=== PATIENT | male | born 1955 | race Caucasian/White ===

== ENCOUNTER 2022-01-18 14:04 | Outpatient (RCR) | payer MEDICARE, BC, SELFPAY ==
--- NOTE | 2022-01-19 14:38 | URNOTE ---
Request received for prior authorization of Granisetron [id number], Gemzar [id number] and Abraxane [id number]. Patient carries Medicare as primary insurance. Per CMS.gov LCD 44028 no prior authorization is required for Gemzar. Per CMs.gov no prior authorization is required for Abraxane and Granisetron. Services are based on medical necessity and follow Medicare guidelines.
== END 2022-01-24 23:59 | disposition home or self-care (01) ==
LOC: CCIC 14:04
PROVIDERS: PCP Family Medicine; Visit Provider Internal Medicine Medical Oncology
DX: C25.9 Malignant neoplasm of pancreas, unspecified (principal); C78.7 Secondary malignant neoplasm of liver and intrahepatic bile duct; R91.8 Other nonspecific abnormal finding of lung field
CPT/HCPCS: 99202; 99205

== ENCOUNTER 2022-01-25 07:42 | Day surgery (SDC) | payer MEDICARE, BC, SELFPAY ==
--- NOTE | 2022-01-25 | CRLHL7_ITS ---
For Patients: As a result of the Century Cures Act, medical imaging exams and procedure reports are released immediately into your electronic medical record. You may view this report before your referring provider. If you have questions, please contact your health care provider. Indication: Intraop port-a-cath placement Technique: Four fluoroscopic spot images of the chest. Fluoroscopic time 101.5 seconds. IMPRESSION: Fluoroscopic guidance for Port-A-Cath placement. Dictated by Luisito Garcia MD @ 01/25/2022 8:55:30 AM (Electronically Signed)
[2022-01-25 06:30] VITALS: BP 138/87; PULSE 77; RESP 16; TEMP 36.7; O2SAT 97
--- NOTE | 2022-01-25 07:32 | CRLHL7_ITS ---
For Patients: As a result of the Century Cures Act, medical imaging exams and procedure reports are released immediately into your electronic medical record. You may view this report before your referring provider. If you have questions, please contact your health care provider. INDICATION: POST PORT PLACEMENT TECHNIQUE: Chest 1 view COMPARISON: 07/01/2021 FINDINGS: Left-sided Port-A-Cath is present with the tip in the lower SVC. No left-sided pneumothorax. No pleural effusion. Improved aeration within the right upper lobe since the prior study. Artifactual skin fold overlies the right lateral hemithorax. Mediastinum similar. IMPRESSION: Left Port-A-Cath present. No left-sided pneumothorax. Dictated by Luisito Garcia MD @ 01/25/2022 8:54:21 AM (Electronically Signed)
--- NOTE | 2022-01-25 08:33 | PM.GSCN ---
History of Present Illness Consult details Consult date: 01/25/22 Narrative: 66-year-old male was recently diagnosed with metastatic pancreatic cancer. Patient was seen by Oncology and chemotherapy was recommended. Patient wished to proceed with chemotherapy and today he presents for a Port-A-Cath placement. 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 He had multiple surgeries on that side approximately 10 years ago. He had neoadjuvant radiation followed by resection. He also had surgery combined with postoperative radiation for 1 of his resections. Patient has a history of tracheostomy. He also had a carotid angioplasty ?through his throat? due to profuse bleeding. This seemed to be a complication of his surgery. Patient has been losing weight. He is not able to eat or drink. He has nausea and vomiting. Review of Systems Narrative: General: no fevers HENT: no problems swallowing but unable to eat CV: no shortness of breath Resp: no cough GI: Patient does have abdominal pain and complaints of nausea and vomiting. 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 He is retired. Meds Home Medications and Allergies Home Medications Medication Instructions Recorded Confirmed Type ondansetron 4 mg disintegrating 4 mg PO Q8H 01/14/22 01/14/22 History tablet lipase 3,000-protease 1 cap PO TID 01/18/22 01/18/22 History 9,500-amylase 15,000 unit capsule, delayed rel (Creon) Allergies Allergy/AdvReac Type Severity Reaction Status Date / Time aprepitant Allergy Severe Anaphylaxis Verified 01/14/22 13:39 tetanus and diphtheria Allergy Severe Verified 01/14/22 13:39 toxoids Exam Narrative: Exam Narrative: General appearance: Alert, cooperative, and in no distress Neck: There was a well-healed post tracheostomy scar in the midline. Pulmonary: Chest symmetric, lungs clear bilaterally Cardiovascular Heart: Regular rate and rhythm, S1, S2, no murmurs/rubs/gallops Gastrointestinal Abdominal: soft, not distended, there is a resolving ecchymosis in the right upper quadrant post patient's recent biopsy Skin: No rashes or lesions. Psychiatric: Alert, cooperative, normal affect. Results Labs Labs: All other labs normal. Assessment and Plan Assessment and plan (1) Pancreatic mass: Status: Acute (2) Carcinoma of pancreas metastatic to liver: Status: Acute (3) Common bile duct obstruction: Status: Acute Plan 66-year-old male with metastatic pancreatic cancer presents for Port-A-Cath placement. I discussed with the patient and his the procedure in detail. Patient does not have any contraindications to the procedure today. I did discuss with the patient that his Port-A-Cath placement might be difficult on the right side given number of surgeries he had on his oropharynx. The risks of the procedure including infection, bleeding, pneumothorax, and inability to place the Port-A-Cath were all discussed with the patient, and he agreed to proceed.
--- NOTE | 2022-01-25 08:34 | W.ANESCHARGE ---
Anesthesia Charges Start Date/Time Anesthesia Start Date: 01/25/22 Anesthesia Start Time: 07:30 Stop Date/Time Anesthesia Stop Date: 01/25/22 Anesthesia Stop Time: 08:35 Summary Emergency: No
[2022-01-25 08:35] VITALS: BP 104/63; PULSE 66; RESP 14; TEMP 36.4; O2SAT 99
--- NOTE | 2022-01-25 08:47 | P.GSOP_ITS ---
Operative Note Date of procedure: 01/25/22 Type of Procedure: 1. Left internal jugular Port-A-Cath placement with ultrasound and fluoroscopy guidance. Procedure Description: After discussing the risks and benefits of the procedure, the patient signed informed consent.? The operative site was marked and the patient was brought to the operating room and placed on the operating table in supine position.? Care was taken to pad the patient's pressure points.?? The patient was then sedated by anesthesia.?? The operative site was then prepped and draped in the usual sterile fashion.? A time-out was then performed. Ultrasound was brought on to the field and the left internal jugular vein was assessed. This was found to be large and easily compressible. The base of the neck directly overlying the internal jugular vein was then anesthetized with 1% lidocaine and 0.25% Marcaine mixture, and an introducer needle was inserted into the internal jugular vein using ultrasound guidance. Entry into the vein was confirmed by the presence of dark, nonpulsatile blood. A guide wire was advanced through the needle. The introducer needle was removed, leaving the wire in place. Fluoroscopy was brought onto the field and used to confirm the passage of the wire. The wire initially was difficult to pass past the midline. With manipulation of the patient position in reverse Trendelenburg and the right side down, I was able to advance the wire under fluoroscopy guidance. The wire was passed on the right side through the superior vena cava and into inferior vena cava. Lidocaine was then used to infiltrate the port skin site, along with the proposed tunneling tract. A 3 cm incision was made at the site of the port pocket and subcutaneous tissue was dissected down using electrocautery. Subcutaneous pocket was created with blunt dissection and e lectrocautery. The catheter was advanced through the subcutaneous tissue using a tunneling trocar, exiting the incision at the base of the neck. The trocar was then disconnected. Fluoroscopy was again brought on to the field and the internal jugular vein and adjacent subcutaneous tissue was dilated with a pre-split introducer sheath in place. The wire was removed and the catheter was inserted i nto the introducer sheath. As the catheter was advanced, the sheath was split and divided, removing the sheath as the catheter was advanced into place. Fluoroscopy was again brought on to the field and the catheter position was examined. The entire course of the catheter was then viewed, and catheter was pulled back under direct visualization to ensure that the tip is in the SVC. The port was connected to the catheter tip and placed into previously created pocket. Prolene was used to place anchoring port sutures and the port was then secured in the pocket. The flow through the catheter was checked with a syringe, and found to be excellent. The incision at the base of the neck was then closed with a single interrupted 4-0 monocryl stitch and dressed with a Steri-Strip and a sterile ba ndage. Subdermal layer was re-approximated with interrupted 3-0 vicryl stitches and skin over the port was closed with 4-0 monocryl using subcuticular stitch. Lyon needle was inserted through the skin into the port and the port was flushed with heparinized saline. This was then left in place for upcoming chemotherapy treatment tomorrow. The incision was then covered with Steri strips, sterile 2x2 and Tegaderm was applied over the incision. The patient was then roused and brought to same day surgery in satisfactory condition. Sponge and needle counts were correct at the end of the procedure. Post procedure CXR was ordered to be done in same day surgery. ? Sterile dressings were then applied. ? The patient was then woken and transported to the recovery area in stable condition. ? The patient tolerated the procedure well. Findings: The left internal jugular vein was easily compressible. There was difficulty initially passing the wire under fluoroscopy guidance. Patient's position was rotated in Trendelenburg and right side down. Once the position was returned to flat in Trendelenburg, I was able to advance the wire under fluoroscopy guidance into the inferior vena cava. Anesthesia: MAC and local Surgeon: Estelita Cantrell MD Condition: stable Disposition: same day
--- NOTE | 2022-01-25 09:54 | W.ANESCHARGE ---
Anesthesia Charges Start Date/Time Anesthesia Start Date: 01/25/22 Anesthesia Start Time: 07:30 Stop Date/Time Anesthesia Stop Date: 01/25/22 Anesthesia Stop Time: 08:35 Summary Emergency: No
== END 2022-01-25 10:15 | disposition home or self-care (01) ==
LOC: OR 07:43
PROVIDERS: PCP Family Medicine; Visit Provider Surgery
PROC: (CPT 36561; principal; 2022-01-25 07:30)
DX: Z45.2 Encounter for adjustment and management of vascular access device (principal); C25.9 Malignant neoplasm of pancreas, unspecified; C78.7 Secondary malignant neoplasm of liver and intrahepatic bile duct; K83.1 Obstruction of bile duct; Z85.818 Personal history of malignant neoplasm of other sites of lip, oral cavity, and pharynx
CPT/HCPCS: 36561; 00532; 71045; C1788

== ENCOUNTER 2022-02-12 12:37 | Outpatient (REF) | payer MEDICARE, BC, SELFPAY ==
[2022-02-12 15:07] LABS: SARS PCR* Negative SARS-CoV-2 (Negative)
== END 2022-02-12 12:38 | disposition home or self-care (01) ==
LOC: NPINS 12:37
PROVIDERS: PCP Family Medicine; Visit Provider Internal Medicine Medical Oncology
DX: Z20.822 Contact with and (suspected) exposure to COVID-19 (principal)
CPT/HCPCS: 87635

== ENCOUNTER 2022-05-10 09:31 | Outpatient (CLI) | payer MEDICARE, BC, SELFPAY ==
--- NOTE | 2022-05-10 10:00 | CRLHL7_ITS ---
For Patients: As a result of the 21st Century Cures Act, medical imaging exams and procedure reports are released immediately into your electronic medical record. You may view this report before your referring provider. If you have questions, please contact your health care provider. Indication: CARCINOMA OF THE PANCREAS AND LIVER Technique: Postcontrast CT chest, abdomen and pelvis. 64 cc Isovue 370 intravenous contrast. Please note that all CT scans at this facility use dose modulation, iterative reconstruction, and/or weight-based dosing when appropriate to reduce radiation dose to as low as reasonably achievable. Comparison: MRI 12/14/21, CT 12/03/2021 Findings: In the chest, there is a left-sided Port-A-Cath present. No mediastinal, hilar or axillary adenopathy. The patient is cachectic. Noncalcified nodule within the left upper lobe measuring 4 millimeters, . 2 millimeter nodule right lower lobe, /95. Lobular nodule right lower lobe measuring 4.4 millimeters, 96. Additional nodule adjacent to the right hemidiaphragm right lower lobe measuring 4 millimeters, /104. No infiltrate, edema, effusion or pneumothorax. No fracture. Emphysematous changes. In the abdomen, increased size and number of innumerable intrahepatic hypodense masses compared to the prior MRI. The largest lesion measures approximately 2.2 cm. Mild adjacent ascites in the right upper quadrant. Interval placement of internal biliary stent with expected pneumobilia. Ill-defined hypodense pancreatic head mass appears more conspicuous measuring up to 3.3 cm. Adjacent adenopathy which has also progressed with innumerable lymph nodes measuring up to 2 cm. Distended pancreatic duct again noted. Spleen is not enlarged. No hydronephrosis. Adrenal glands normal. No abdominal aortic aneurysm. No bowel obstruction. In the pelvis, increased stool in the colon compatible with constipation. Pelvic fluid noted. No abscess. No free air. No bowel obstruction. Bladder normal. A few scattered bone islands within the pelvis stones. Incidental density within the posterior spinal canal L4-5. Impression: Increased number and size of innumerable hepatic metastatic lesions. Interval development of intra-abdominal and intrapelvic ascites. Increased size of pancreatic mass. Interval placement of internal biliary stent. Increased adjacent retroperitoneal adenopathy. Scattered bilateral pulmonary nodules measuring up to 4.4 millimeters. Please note that all CT scans at this facility use dose modulation, iterative reconstruction, and/or weight-based dosing when appropriate to reduce radiation dose to as low as reasonably achievable. Dictated by Luisito Garcia MD @ 05/10/2022 1:00:49 PM (Electronically Signed)
== END 2022-05-10 09:32 | disposition home or self-care (01) ==
LOC: CT 09:33
PROVIDERS: Visit Provider Internal Medicine Medical Oncology
DX: C78.7 Secondary malignant neoplasm of liver and intrahepatic bile duct (principal); C25.9 Malignant neoplasm of pancreas, unspecified; R91.8 Other nonspecific abnormal finding of lung field
CPT/HCPCS: 36415; 36591; 71260; 74177; 80053; 85025; 99212; 99214; J1642; Q9967

== ENCOUNTER 2022-07-21 17:47 | Inpatient (IN) | payer MEDICARE, BC, SELFPAY ==
[2022-07-21] VITALS (10 sets, daily range): BP systolic 85–115; BP diastolic 61–79; PULSE 63–70; RESP 14–20; TEMP 35.1–36; O2SAT 88–97; BMI 17.9
--- NOTE | 2022-07-21 17:59 | ED.GENADULT ---
HPI - General Adult General Chief complaint: Weakness Stated complaint: Fall Time Seen by Provider: 07/21/22 17:58 History of Present Illness HPI narrative: This 66-year-old male comes in by ambulance where ambulance personnel it noted a blood glucose of 38. He did receive treatment for this and has responded nicely. He is not on any glucose lowering medications. He does have pancreatic cancer and oral cancer. He is very difficult to understand. He does report that he was [place] [employer] and states that he fell without injury. He got some help to get up and he drove home. People at home found him in the car not responding well. He denies having any injury. He is cachectic and currently receiving chemotherapy for his cancers. Related Data Home Medications Medication Instructions Recorded Confirmed loperamide 2 mg capsule 2 mg PO Q6H PRN 02/25/22 07/19/22 calcium carbonate 200 mg calcium 200 mg PO QID PRN 03/29/22 07/19/22 (500 mg) chewable tablet (Tums) psyllium husk 3.4 gram/5.4 gram 1 tbsp PO QDAY 06/24/22 07/19/22 oral powder (Metamucil) Previous Rx's Medication Instructions Recorded lorazepam 0.5 mg tablet 0.5 mg PO BID PRN nausea and 01/26/22 vomiting #30 tabs ondansetron 4 mg disintegrating 4 mg PO Q8H PRN nausea and 01/26/22 tablet vomiting #30 tabs prochlorperazine maleate 10 mg 10 mg PO TID PRN nausea and 01/26/22 tablet vomiting #30 tabs Allergies Allergy/AdvReac Type Severity Reaction Status Date / Time aprepitant Allergy Severe Anaphylaxis Verified 07/21/22 18:55 tetanus and diphtheria Allergy Severe Verified 07/21/22 18:55 toxoids Review of Systems Status of ROS: Reports: 10 or more systems reviewed and unremarkable except as noted in History and below Narrative: Constitutional: No fevers. Eyes: No discharge. No vision changes. HENT: Oral cancer with associated dry mouth. Cardiovascular: No chest pain, no palpitations. Respiratory: No shortness of breath, no wheezes, no cough. Gastrointestinal: No abdominal pain, no vomiting, no diarrhea. Genitourinary: No dysuria, no hematuria. Musculoskeletal: Normal range of motion. Skin: No rashes, no pruritis. Neurological: No dizziness, sensory change, speech change. Endo/Heme/Allergies: No bruising or bleeding. No polydipsia. Pysch: no suicidality, no anxiety, no insomnia. All other systems reviewed and are negative. [facility] Medical History (Updated 07/21/22 @ 20:31 by Bony Barriga MD) Colon polyps Diarrhea History of colonic polyps History of tongue cancer (2011) Impingement syndrome of right shoulder (05/23/12) Peripheral neuropathy due to chemotherapy Port-A-Cath in place Squamous cell carcinoma of oropharynx (~2008) Surgical History History of carotid angioplasty History of mandibular surgery History of mandibular surgery History of tracheostomy S/P vasectomy Social History Narrative: Patient denies smoking and drinking alcohol. He is retired. Smoking Status: Unknown if ever smoked Exam Narrative: Exam Narrative: Constitutional: Cachectic. HEENT: Normocephalic, atraumatic. Neck: Normal range of motion. Nontender. Supple. Heart: Regular. No murmurs. Normal rate. Intact distal pulses. Lungs: Clear to auscultation. No chest discomfort. No wheezes, rhonchi, or rales. Abdomen: Normal bowel sounds. Nontender. No rebound tenderness. Genitalia: Deferred. Back: No midline tenderness. Normal range of motion. Extremities: Normal range of motion. No injury. Skin: Intact. Ecchymosis on his face and around his eyes from prior to today. Neurologic: No altered sensation. No weakness. Alert and oriented. Psychiatric: No suicidality. No anxiety or depression. No insomnia. Nursing notes and vitals signs are reviewed. Const: Vital Signs, click to edit/add: Vital Signs - 24 hr 07/21/22 17:57 07/21/22 18:56 Temperature 95.2 F L Pulse Rate [Right Pulse Oximeter] 64 Respiratory Rate 16 Blood Pressure [Le ft Upper Arm] 100/73 Pulse Oximetry 97 Oxygen Delivery Me thod Room Air Course Vital Signs Vital signs: Initial Vital Signs Temperature 95.2 F L 07/21/22 17:57 Temperature Source Temporal Artery Scan 07/21/22 17:57 Respiratory Rate 16 07/21/22 17:57 Blood Pressure 100/73 07/21/22 17:57 Blood Pressure Mean 82 07/21/22 17:57 Blood Pressure Position Supine 07/21/22 17:57 Vital Signs Temperature 95.2 F L 07/21/22 17:57 Respiratory Rate 16 07/21/22 17:57 Blood Pressure 100/73 07/21/22 17:57 Temperature 95.2 F L 07/21/22 17:57 Pulse Rate 64 07/21/22 18:56 Respiratory Rate 16 07/21/22 17:57 Blood Pressure 100/73 07/21/22 17:57 Pulse Oximetry 97 07/21/22 18:56 Oxygen Delivery Method 07/21/22 18:56 Medical Decision Making MDM Narrative Medical decision making narrative: This patient comes in by ambulance because of generalized weakness and decreased responsiveness. He had a low glucose level of 38 when ambulance arrived. He did receive IV glucose and oral glucose and this helped him recover. He has new onset of weakness today. He does have a history of tongue cancer and pancreatic cancer and is undergoing chemotherapy. I noted in his previous record that his weight was 157 lb about 9 months ago. Currently he is about 30 lb less. He arrives with decreased temperature at around 95?. He was given IV D5 half-normal saline and placed in a [facility]. He does not have any significant complaints. His lab values returned with some elevation in his liver enzymes which is not new. He also has a history of hyponatremia and sodium levels today are at 127 which is similar to previous values. His glucose returns at 91. He is not on any glucose lowering medications. It is uncertain why his glucose was low but he has poor oral intake and is been losing weight. He also has a pancreatic cancer and there may be some possibility of an insulinoma. I spoke with the hospitalist site acquisition specialist regarding these matters. Dr. Brown except this patient for admission. The patient is DNR DNI and states to me that he has an Advance directive. I was unable to find this documentation. He did personally state to me that he does not want any heroic measures done. Lab Data Labs: Lab Results 07/21/22 07/21/22 Range/Units 18:10 18:10 WBC 3.54 L (4.50-11.00) K/uL RBC 4.60 (4.30-5.90) m/uL Hgb 13.4 L (13.5-17.5) gm/dL Hct 39.4 (37.0-53.0) % MCV 86 (80-100) fL MCH 29 (26-34) pg MCHC 34 (32-36) gm/dL RDW Coeff of Cassie 16.5 H (11.5-15.5) % Plt Count 73 L (140-440) K/uL Neut % (Auto) 76.8 H (42.0-72.0) % Lymph % (Auto) 9.9 L (20-44) % Wilkin % (Auto) 6.2 (0.0-11.0) % Eos % (Auto) 0.0 (0.0-7.0) % Baso % (Auto) 0.0 (0.0-3.0) % Neut # (Auto) 2.70 (1.7-7.0) K/uL Lymph # (Auto) 0.40 L (0.90-2.90) K/uL Wilkin # (Auto) 0.20 (0.00-0.90) K/UL Eos # (Auto) 0.00 (0.00-0.50) K/uL Baso # (Auto) 0.00 (0.00-0.30) K/uL Sodium 127 L (135-149) mmol/L Potassium 3.7 (3.6-5.1) mmol/L Chloride 94 L (96-114) mmol/L Carbon Dioxide 30 (20-32) mmol/L BUN 41 H (7-30) mg/dL Creatinine 0.7 (0.5-1.5) mg/dL Estimated Creat Clear 58.87 Estimated GFR 101 ml/min Glucose 91 (60-115) mg/dL Calcium 7.8 L (8.4-10.6) mg/dL Total Bilirubin 1.6 H (0.1-1.5) mg/dL Direct Bilirubin 0.6 H (0.0-0.5) mg/dL AST 149 H (12-35) U/L ALT 107 H (4-50) U/L Alkaline Phosphatase 423 H (40-150) U/L Total Protein 5.2 L (6.0-8.3) g/dL Albumin 2.9 L (3.3-5.0) g/dL Discharge Plan Discharge Clinical Impression: Weakness, Hypoglycemia, Pancreatic cancer, Cancer of tongue Patient Disposition: Admitted As Inpatient Condition: Unchanged Prescriptions: No Action loperamide 2 mg capsule 2 mg PO Q6H PRN Metamucil 3.4 gram/5.4 gram powder 1 tbsp PO QDAY Rx Instructions: mix into at least 8 oz of water or juice before administering calcium carbonate [Tums] 200 mg calcium (500 mg) tablet,chewable 200 mg PO QID PRN ondansetron 4 mg tablet,disintegrating 4 mg PO Q8H PRN (Reason: nausea and vomiting) Qty: 30 1RF prochlorperazine maleate 10 mg tablet 10 mg PO TID PRN (Reason: nausea and vomiting) Qty: 30 1RF Rx Instructions: Take first for CHEMO related nausea. lorazepam 0.5 mg tablet 0.5 mg PO BID PRN (Reason: nausea and vomiting) Qty: 30 0RF Rx Instructions: Take 1 tab if needed for insomnia related to chemotherapy. May also take for nausea not relieved with other antinausea medications. Follow Up/Referrals: Nika Kyle PA-C [Primary Care Provider] -
[2022-07-21 18:26] LABS: Hematocrit 39.4 % (37.0-53.0); Hemoglobin* 13.4 gm/dL (13.5-17.5); Immature Granulocytes Pct Auto 7.1 %; Lymphocytes Percent Auto 9.9 % (20-44); Mean Corpuscular HGB Conc 34 gm/dL (32-36); Mean Corpuscular Hemoglobin 29 pg (26-34); Mean Corpuscular Volume 86 fL (80-100); Monocytes Percent Auto 6.2 % (0.0-11.0); Neutrophils Percent Auto 76.8 % (42.0-72.0); Platelet Count* 73 K/uL (140-440); RDW Coefficient of Variation % 16.5 % (11.5-15.5); White Blood Count* 3.54 K/uL (4.50-11.00)
[2022-07-21 18:35] LABS: Albumin* 2.9 g/dL (3.3-5.0); Chloride* 94 mmol/L (96-114); Potassium* 3.7 mmol/L (3.6-5.1); Sodium* 127 mmol/L (135-149)
[2022-07-21 18:38] LABS: Alanine Aminotransferase* 107 U/L (4-50); Alkaline Phosphatase* 423 U/L (40-150); Aspartate Amino Transferase* 149 U/L (12-35); Bilirubin Direct* 0.6 mg/dL (0.0-0.5); Bilirubin Total* 1.6 mg/dL (0.1-1.5); Blood Urea Nitrogen* 41 mg/dL (7-30); Calcium* 7.8 mg/dL (8.4-10.6); Carbon Dioxide* 30 mmol/L (20-32); Creatinine* 0.7 mg/dL (0.5-1.5); Est. Creatinine Clearance* 58.87; Estimated Glomerular Filt Rate 101 ml/min; Glucose* 91 mg/dL (60-115); Total Protein* 5.2 g/dL (6.0-8.3)
[2022-07-21 18:40] LABS: Slide Review Reflex No
[2022-07-21] MEDS: 5 % DEXTROSE/0.45% SOD CHLOR 1,000 ML 1000 ML IV (18:53)
--- NOTE | 2022-07-21 19:29 | ED.NURSE ---
BS 125
--- NOTE | 2022-07-21 20:16 | CRLHL7_ITS ---
For Patients: As a result of the Century Cures Act, medical imaging exams and procedure reports are released immediately into your electronic medical record. You may view this report before your referring provider. If you have questions, please contact your health care provider. INDICATION: Fall. TECHNIQUE: Noncontrast CT images acquired through the brain. COMPARISON: None. FINDINGS: Prominence of the ventricles and sulci compatible with mild diffuse cerebral volume loss. No mass effect or midline shift. The pierson differentiation is maintained. No acute intracranial hemorrhage or pathologic extra-axial fluid collection. Intracranial atherosclerotic calcifications. No calvarial fracture. Osseous defects in the right maxillary sinus posterior and medial guido as well as soft tissue defect within right molder machine space with multiple surgical clips in the adjacent soft tissues. The globes are symmetric in size. Moderate opacification of the right maxillary sinus. Severe opacification of the right mastoid air cells and right middle ear cavity. IMPRESSION: 1. No acute intracranial hemorrhage or mass effect. 2. Osseous defects in the right maxillary sinus posterior and medial guido as well as soft tissue defect within right molder machine space with multiple surgical clips in the adjacent soft tissues. 3. Severe opacification of the right mastoid air cells and right middle ear cavity. Please note that all CT scans at this facility use dose modulation, iterative reconstruction, and/or weight-based dosing when appropriate to reduce radiation dose to as low as reasonably achievable. Dictated by Marcus Martinez MD @ 07/21/2022 9:26:53 PM (Electronically Signed)
--- NOTE | 2022-07-21 20:17 | CRLHL7_ITS ---
For Patients: As a result of the Cures Act, medical imaging exams and procedure reports are released immediately into your electronic medical record. You may view this report before your referring provider. If you have questions, please contact your health care provider. INDICATION: Cough TECHNIQUE: Chest radiograph 1 view COMPARISON: 01/25/2022 FINDINGS: Mediastinum: The mediastinum is normal in appearance. The heart silhouette is normal in size and morphology. Left Port-A-Cath is noted without interval change. Lung: Ill-defined airspace opacities and ground-glass densities present in the medial lung bases bilaterally. A stable punctate granuloma is noted in the right apex. No sign of pleural effusion seen. No pneumothorax is identified. Bone and Soft tissue: Unremarkable for age. IMPRESSION: 1. Ill-defined airspace opacities and ground-glass densities present in the medial lung bases bilaterally. These findings can be seen with atelectasis and/or pneumonia. Dictated by Jorge Alegre MD @ 07/21/2022 9:13:01 PM Dictated by: Jorge Alegre MD @ 07/21/2022 21:13:16 (Electronically Signed)
--- NOTE | 2022-07-21 20:33 | ED.NURSE ---
Pt did stand at [facility] for urine output with two assist for stability, has pressure ulcer to coccyx, intact skin. Pt also has bruising to L buttock.
[2022-07-21 20:51] LABS: Creatine Kinase* 872 U/L (54-186)
[2022-07-21 21:43] LABS: SARS PCR* Negative SARS-CoV-2 (Negative)
--- NOTE | 2022-07-21 22:28 | PM.IMHP1 ---
Hospitalist- H&P: HPI History of Present Illness Time Seen by Provider: 22:28 Date Seen: 07/21/22 Chief complaint: Fall Narrative: Ben Gurrola is a 66 year old male who was brought to the ER by ambulance for concern of weakness and lethargy. He went to [facility] today where he got some things and while putting them in his trunk he lost his balance and fell backward hitting the back of his head. He denies slipping on the ice and states that he truly just lost his balance all of a sudden. He did something similar last week having hit his head at the time and has had bruising around his eyes since then. After getting up in getting back into the car he drove home but does not remember this. The receipt from [facility] was from 2:30 p.m.. His granddaughter walked to their house from school as she usually does and got there around 3:20 p.m. she could not find bruise and so called her father who came in found bruise in the car. He was lethargic and too weak to stand so the son carried Ben into the house and put him on the couch. He then had to leave for work again. When bruises came back home at 4:10 p.m., keyona was still very lethargic, slumped over, and weak so she called the ambulance. In the emergency department he was found to have a low blood sugar of 38 and was hypothermic at 95 ?F. He denies any recent illnesses. He has had a cough intermittently and his legs have been swelling. His notes that his abdomen has also become more protuberant. He is on palliative intent second-line chemotherapy with FOLFOX and has an infusion pump with him that he started yesterday and stopped today [facility] through the infusion. Eating is challenging both because he has difficulty swallowing due to history of tongue cancer and multiple tongue surgeries but also because whenever he does eat he gets what sounds like refeeding syndrome with severe diarrhea. He has tried many different supplements all of which cause diarrhea. Review of Systems Status of ROS: Reports: 10 or more systems reviewed and unremarkable except as noted in History and below [facility] Medical History (Updated 07/21/22 @ 23:17 by Lilly Brown MD) Cancer of tongue Chemotherapy-induced neutropenia CINV (chemotherapy-induced nausea and vomiting) Colon polyps Common bile duct obstruction Diarrhea Elevated liver transaminase level History of colonic polyps History of tongue cancer (2011) Impingement syndrome of right shoulder (05/23/12) Obstruction of pancreatic duct Pancreatic cancer Pancreatic cancer metastasized to liver Peripheral neuropathy due to chemotherapy Port-A-Cath in place Pulmonary nodules Squamous cell carcinoma of oropharynx (~2008) Surgical History History of carotid angioplasty History of mandibular surgery History of mandibular surgery History of tracheostomy S/P vasectomy Social History (Updated 07/21/22 @ 23:06 by Lilly Brown MD) Narrative: Patient denies smoking and drinking alcohol. He is retired. Full code, but notes that this is different than his advanced directives because he wants to be full code during this hospital stay. Smoking Status: Unknown if ever smoked Meds Home Medications and Allergies Home Medications Medication Instructions Recorded Confirmed Type loperamide 2 mg capsule 2 mg PO Q6H PRN 02/25/22 07/19/22 History calcium carbonate 200 mg calcium 200 mg PO QID PRN 03/29/22 07/19/22 History (500 mg) chewable tablet (Tums) psyllium husk 3.4 gram/5.4 gram 1 tbsp PO QDAY 06/24/22 07/19/22 History oral powder (Metamucil) Allergies Allergy/AdvReac Type Severity Reaction Status Date / Time aprepitant Allergy Severe Anaphylaxis Verified 07/21/22 18:55 tetanus and diphtheria Allergy Severe Verified 07/21/22 18:55 toxoids Exam Narrative: Exam Narrative: General: No acute distress. Awake alert oriented x3. Extremely thin and cachectic with severe muscle wasting in the face and throughout the body. Difficult to understand because he has history of 5 tongue surgeries for cancer. HEENT: Bilateral circumferential bruising on both eyelids, pupils equally round and reactive to light and accommodation. Oropharynx is difficult to completely visualize because he is only able to open his mouth about 4 mm. There is grayish white tissue on the right side of the mouth and partially resected glottis. Mucous membranes are moist. No cervical lymphadenopathy, thyromegaly or carotid bruits. No JVD. Cardiovascular: Regular rate and rhythm. No murmurs, gallops, or rubs. Chest: No increased work of breathing. Crackles throughout with rhonchi. No wheezes. Abdomen: Bowel sounds present. Mildly protuberant abdomen, nontender. Extremities: 4+ bilateral pitting edema in both lower extremities, no cyanosis or clubbing. Skin: Mildly jaundiced no pallor, no rashes. Neuro: Grossly intact. No focal deficits. Const: Vital Signs, click to edit/add: Vital Signs - 24 hr 07/21/22 17:57 07/21/22 18:56 07/21/22 18:00 Temperature 95.2 F L Pulse Rate [Right Pulse Oximeter] 64 67 Respiratory Rate 16 14 Blood Pressure [Le ft Upper Arm] 100/73 94/77 Pulse Oximetry 97 Oxygen Delivery Me thod Room Air 07/21/22 18:20 07/21/22 18:40 07/21/22 19:00 Temperature Pulse Rate [Right Pulse Oximeter] 66 63 Respiratory Rate 14 14 14 Blood Pressure [Le ft Upper Arm] 100/73 93/78 97/74 Pulse Oximetry Oxygen Delivery Me thod 07/21/22 19:20 07/21/22 20:00 07/21/22 21:00 Temperature Pulse Rate [Right Pulse Oximeter] 66 66 70 Respiratory Rate 14 14 14 Blood Pressure [Le ft Upper Arm] 85/61 L 102/79 115/77 Pulse Oximetry 91 88 Oxygen Delivery Me thod Nasal Cannula Nasal Cannula Hospitalist - H&P: Result Labs Labs: Short CBC 07/21/22 Range/Units 18:10 WBC 3.54 L (4.50-11.00) K/uL Hgb 13.4 L (13.5-17.5) gm/dL Hct 39.4 (37.0-53.0) % Plt Count 73 L (140-440) K/uL BMP 07/21/22 18:10 Sodium 127 L Potassium 3.7 Chloride 94 L Carbon Dioxide 30 BUN 41 H Creatinine 0.7 Glucose 91 Calcium 7.8 L Cardiac Enzymes 07/21/22 Range/Units 18:00 Total Creatine Kinase 872 H (54-186) U/L Liver Function 07/21/22 Range/Units 18:10 Total Bilirubin 1.6 H (0.1-1.5) mg/dL Direct Bilirubin 0.6 H (0.0-0.5) mg/dL AST 149 H (12-35) U/L ALT 107 H (4-50) U/L Alkaline Phosphatase 423 H (40-150) U/L Albumin 2.9 L (3.3-5.0) g/dL Ordering Physician: Bony Barriga M.D. Date of Service: 07/21/22 Procedure(s): CT head/brain wo con Accession Number(s): [id number] cc: Bony Barriga M.D.; Nika Kyle PA-C~ For Patients: As a result of the Cures Act, medical imaging exams and procedure reports are released immediately into your electronic medical record. You may view this report before your referring provider. If you have questions, please contact your health care provider. INDICATION: Fall. TECHNIQUE: Noncontrast CT images acquired through the brain. COMPARISON: None. FINDINGS: Prominence of the ventricles and sulci compatible with mild diffuse cerebral volume loss. No mass effect or midline shift. The pierson differentiation is maintained. No acute intracranial hemorrhage or pathologic extra-axial fluid collection. Intracranial atherosclerotic calcifications. No calvarial fracture. Osseous defects in the right maxillary sinus posterior and medial guido as well as soft tissue defect within right mobile home technician space with multiple surgical clips in the adjacent soft tissues. The globes are symmetric in size. Moderate opacification of the right maxillary sinus. Severe opacification of the right mastoid air cells and right middle ear cavity. IMPRESSION: 1. No acute intracranial hemorrhage or mass effect. 2. Osseous defects in the right maxillary sinus posterior and medial guido as well as soft tissue defect within right mobile home technician space with multiple surgical clips in the adjacent soft tissues. 3. Severe opacification of the right mastoid air cells and right middle ear cavity. Please note that all CT scans at this facility use dose modulation, iterative reconstruction, and/or weight-based dosing when appropriate to reduce radiation dose to as low as reasonably achievable. Dictated by Marcus Martinez MD @ 07/21/2022 9:26:53 PM (Electronically Signed) Ordering Physician: Bony Barriga M.D. Date of Service: 07/21/22 Procedure(s): XR chest 1V Accession Number(s): [id number] cc: Bony Barriga M.D.; Nika Kyle For Patients: As a result of the Cures Act, medical imaging exams and procedure reports are released immediately into your electronic medical record. You may view this report before your referring provider. If you have questions, please contact your health care provider. INDICATION: Cough TECHNIQUE: Chest radiograph 1 view COMPARISON: 01/25/2022 FINDINGS: Mediastinum: The mediastinum is normal in appearance. The heart silhouette is normal in size and morphology. Left Port-A-Cath is noted without interval change. Lung: Ill-defined airspace opacities and ground-glass densities present in the medial lung bases bilaterally. A stable punctate granuloma is noted in the right apex. No sign of pleural effusion seen. No pneumothorax is identified. Bone and Soft tissue: Unremarkable for age. IMPRESSION: 1. Ill-defined airspace opacities and ground-glass densities present in the medial lung bases bilaterally. These findings can be seen with atelectasis and/or pneumonia. Dictated by Jorge Alegre MD @ 07/21/2022 9:13:01 PM Dictated by: Jorge Alegre MD @ 07/21/2022 21:13:16 (Electronically Signed) Assessment and Plan Assessment and plan (1) Weakness: Status: Acute (2) Hypoglycemia: Status: Acute (3) Pancreatic cancer: Status: Acute (4) Cancer of tongue: Status: Acute (5) Hypokalemia: Status: Acute (6) Hyponatremia: Status: Acute (7) Port-A-Cath in place: Status: Acute (8) Squamous cell carcinoma of oropharynx: Problem comment: Past history, inactive. Received combined chemo rads Status: Acute (9) Pancreatic cancer metastasized to liver: Status: Acute (10) Elevated liver transaminase level: Status: Acute (11) Severe protein-calorie malnutrition: Status: Acute (12) Lower extremity edema: Status: Acute (13) Pneumonia: Status: Acute (14) Dysphagia: Status: Acute Plan 66-year-old male on palliative FOLFOX for metastatic pancreatic cancer. Also has a history of tongue cancer which is not active. Fall may have been related to hypoglycemia, although that is not clear. He is severely malnourished likely due to inability to swallow well as well as what sounds like refeeding syndrome. He has developed bilateral infiltrates and may have pneumonia verses heart failure. Since he has pancreatic cancer with history of biliary obstruction I will avoid azithromycin. I suspect he likely aspirates. He also has lower extremity edema which may be related to heart failure verses hypoalbuminemia. Multiple electrolyte abnormalities are present as well. I will start him on Zosyn for possible pneumonia. Obtain echocardiogram. RT consult with vibratory pep. I have also asked speech therapy and Nutrition to see him. He may benefit from Lasix as well, but I did not want upward this tonight yet as he will likely be up all night urinating and given his current level of weakness I think this would be better done during the day. I think the hypoglycemia he experienced today is likely related to malnutrition and possibly hypothermia. It is possible he has developed an insulinoma, but I think this is less likely. I have asked him to stop FOLFOX for now so we can treat for pneumonia. If needed we can call Oncology tomorrow to touch base with Dr. Larsen about this. Due to the lower extremity edema I do not think he would do well with Seth's or SCDs. I will start low-dose Lovenox for VTE prophylaxis.
[2022-07-22] VITALS (9 sets, daily range): BP systolic 87–105; BP diastolic 63–88; PULSE 67–90; RESP 18–20; TEMP 35.9–36.6; O2SAT 93–100; BMI 19.8
[2022-07-22] MEDS: PIPERACILLIN/TAZOBACTAM 3.375 GM in 0.9 % SODIUM CHLORIDE Mini-bag 100 ML IVPB ×3 (00:57→11:29)
--- NOTE | 2022-07-22 07:32 | PC.NURSE ---
admitted at 2115 from ED after a fall and hypoglycemia at home. Pt came up with bgs 125, alert and oriented. D5 45 d/c. Edema to BLE. Denies pain or discomfort. Hx of oral cancer and pancreatic cancer. Talks with a slur but with can interpret when here. Pt on tele, and continuous oximetry. Readings not very accurate. Pt bgs dropped to 54, given orange juice and then it dropped to 48. After another orange juice and peanut butter toast, pt bgs 92. Soft BP. Coccyx is thin, mepilex applied. Pt has port to left of chest, that is patent. Scrap to head from fall at [employer] earlier. Eyes have racoon redness around them. Pt thinks it may have come from an earlier fall last week. Missing teeth and tongue from earlier hx of h=oral cancer.
[2022-07-22] MEDS: SODIUM CHLORIDE 0.9 % (FLUSH) 10 ML SYRINGE 5 ML IVF ×2 (09:12→10:21)
[2022-07-22] MEDS: HEPARIN 500 UNIT/5 ML SYRINGE IVF ×2 (09:12→10:21)
--- NOTE | 2022-07-22 10:17 | CRLHL7_ITS ---
For Patients: As a result of the 21st Century Cures Act, medical imaging exams and procedure reports are released immediately into your electronic medical record. You may view this report before your referring provider. If you have questions, please contact your health care provider. INDICATION: Cancer surveillance. TECHNIQUE: CT chest, abdomen and pelvis acquired with 63 cc Isovue 370 IV contrast. COMPARISON: 05/10/2022. FINDINGS: CHEST Lungs and pleura: Interval development of left greater than right basilar ground-glass/tree-in-bud nodules. Previously described right lower lobe pulmonary nodule is stable. No new suspicious pulmonary nodules. No effusions, thickening, or pneumothorax. Heart and vasculature: Heart size is normal. Thoracic aorta and pulmonary artery are normal in caliber. No pulmonary embolism in the opacified pulmonary arteries. Lymph node/mediastinum: No mediastinal, hilar, or axillary adenopathy. Chest wall: Cachexia. Left chest wall port with catheter terminating in the superior cavoatrial junction. Bones: No suspicious bone lesions. ABDOMEN AND PELVIS: Liver: Cirrhotic morphology. Re-demonstration of multiple intrahepatic hypodense masses, likely decreased in size in number, partly related to the phase of contrast which is in the arterial phase Gallbladder and bile ducts: Similar common bile duct stent. Mild dilation of the gallbladder with intraluminal air/pneumobilia, not unexpected given stent placement. Pancreas: Interval pancreatic atrophy, which obscures known pancreatic mass, but also has likely decreased in size with less peripancreatic soft tissue extension. Spleen: Normal in caliber. No masses. Adrenal glands: Unremarkable. No masses. Kidneys: Normal in caliber. No suspicious masses. GI tract: Moderate colonic stool burden. Normal in caliber and appearance. No sign of mass or inflammation. Vasculature: Unremarkable. Mesenteric arteries are patent. Lymph nodes: No lymphadenopathy. Omentum/peritoneum/retroperitoneum/abdominal wall: Moderate to large volume ascites. Pelvic organs: Unremarkable. Bones: Interval development of T11 sclerotic lesion IMPRESSION: Interval development of bibasilar left greater than right pneumonia. Interval increase of moderate to large volume ascites. Re-demonstration of multiple hepatic metastases, which appear to have mildly decreased in number and size. However, study is limited secondary to phase of contrast which is in the arterial phase rather than the venous phase likely related to physiologic factors. Interval development of at least ONE sclerotic lesion in T11 vertebral body consistent with metastasis, possibly related to posttreatment changes. Otherwise, no new sites of disease. Re-demonstration of known pancreatic mass, less conspicuous on today`s examination secondary to interval pancreatic atrophy, phase of contrast which is in the arterial phase, and ascites. Overall, previously seen peripancreatic soft tissue infiltration also appears to have mildy decreased. Case discussed with Dr. Prince at 11:50 a.m. on 07/22/2022. Please note that all CT scans at this facility use dose modulation, iterative reconstruction, and/or weight-based dosing when appropriate to reduce radiation dose to as low as reasonably achievable. Dictated by Haja Beltran MD @ 07/22/2022 1:57:05 PM (Electronically Signed)
[2022-07-22] MEDS: PROCHLORPERAZINE 5 MG/ML VIAL 10 MG IV (10:19)
[2022-07-22] MEDS: LOPERAMIDE HCL 2 MG CAPSULE PO ×3 (10:20→21:02)
--- NOTE | 2022-07-22 10:38 | PM.IMPN1 ---
Progress Note: A&P Assessment and plan (1) Weakness: Problem details: Related to his underlying metastatic cancer. Status: Acute (2) Hypoglycemia: Problem details: I suspect he cannot supply enough calories to maintain a blood sugar nor nor does he seem to have the ability to mobilize glucagon to maintain euglycemia. We discussed briefly increasing calories and decreased duration between feeds, even considering a short-term continuous blood glucose monitor a freestyle Hollie. Status: Acute (3) Pancreatic cancer: Problem details: Patient was scheduled to have outpatient scans on the 28 of July and then consider another line of palliative chemotherapy which includes 5FU if his current FOLFOX is not making a significant difference. We decided to run those scans today so we can determine his path based on response to the FOLFOX. Status: Acute (4) Cancer of tongue: Problem details: Chronic speech impediment. Status: Acute (5) Hyponatremia: Problem details: Monitoring Status: Acute (6) Port-A-Cath in place: Problem details: Noted Status: Acute (7) Pancreatic cancer metastasized to liver: Problem details: Reviewed oncology notes. Updating scans today. Status: Acute (8) Severe protein-calorie malnutrition: Status: Acute (9) Pneumonia: Problem details: Continue antibiotics, getting chest CT with his abdomen pelvic CT Status: Acute Subjective Date Seen: 07/22/22 Interval history: Daily Progress Note - Hospital Medicine Day #: 2 CC: Metastatic pancreatic cancer, acute on chronic weakness, hypoglycemia, bilateral pneumonia OVERNIGHT UPDATES FROM STAFF & MED, LAB, IMAGING UPDATES Stable overnight. Patient is alert and oriented. Is able to offer insight into his care plan and decisions regarding end of life care verses continue treatment. I spent 30 minutes with he and his in the room today. He is chronically ill-appearing, weak and cachectic. However despite a chronic speech impediment, from a previous cancer, he is expressive insightful. He does complain of some intermittent nausea, intermittent diarrhea. He said his appetite was fairly normal this morning. There has been no fever. He is requiring 2 L nasal cannula oxygen to keep his sats greater than 90%. He has hypotension even at his baseline. Objective: As above. Chronically ill. Cachectic. Vitals: see above Lungs: Rhonchi bilaterally Cardiac: S1S2. No harsh murmurs. No significant edema. Generally, neurologically, he has trouble swinging his legs into bed, he cannot sit up or lift himself to reposition in bed. Afebrile, T-max 977 Blood pressure 87/67, 102/84 Pulse rate 60s Respiratory rate 20 90-95% on 2 L 58.2 kilos No new labs drawn today, everything reviewed from 6:00 p.m. yesterday noted: Mild leukopenia Moderate hyponatremia Chronic LFT elevation with some mild hyperbilirubinemia CK was mildly bumped yesterday upon arrival [address]: mastoiditis; asymptomatic CXR - b/l medial lung bases airspace disease Disposition/Potential discharge - Likely to return to previous living situation. Total time is 35 minutes with greater than 50% spent in counseling and coordination of care. Exam Const: Vital Signs, click to edit/add: Vital Signs - 24 hr 07/21/22 17:57 07/21/22 18:56 07/21/22 18:00 Temperature 95.2 F L Pulse Rate Pulse Rate [Right Pulse Oximeter] 64 67 Respiratory Rate 16 14 Blood Pressure [Le ft Upper Arm] 100/73 94/77 Blood Pressure [Ri ght Arm] Pulse Oximetry 97 Oxygen Delivery Me thod Room Air Oxygen Flow Rate 07/21/22 18:20 07/21/22 18:40 07/21/22 19:00 Temperature Pulse Rate Pulse Rate [Right Pulse Oximeter] 66 63 Respiratory Rate 14 14 14 Blood Pressure [Le ft Upper Arm] 100/73 93/78 97/74 Blood Pressure [Ri ght Arm] Pulse Oximetry Oxygen Delivery Me thod Oxygen Flow Rate 07/21/22 19:20 07/21/22 20:00 07/21/22 21:00 Temperature Pulse Rate Pulse Rate [Right Pulse Oximeter] 66 66 70 Respiratory Rate 14 14 14 Blood Pressure [Le ft Upper Arm] 85/61 L 102/79 115/77 Blood Pressure [Ri ght Arm] Pulse Oximetry 91 88 Oxygen Delivery Me thod Nasal Cannula Nasal Cannula Oxygen Flow Rate 07/21/22 21:37 07/21/22 21:37 07/22/22 04:51 Temperature 96.8 F L Pulse Rate Pulse Rate [Right Pulse Oximeter] 64 Respiratory Rate 18 20 Blood Pressure [Le ft Upper Arm] Blood Pressure [Ri ght Arm] Pulse Oximetry 94 95 Oxygen Delivery Me thod Nasal Cannula Oxygen Flow Rate 1.5 07/22/22 01:05 07/22/22 05:30 07/22/22 08:04 Temperature 97.8 F 97.7 F Pulse Rate 67 Pulse Rate [Right Pulse Oximeter] 81 88 Respiratory Rate 18 20 Blood Pressure [Le ft Upper Arm] Blood Pressure [Ri ght Arm] 102/88 102/84 Pulse Oximetry 95 98 Oxygen Delivery Me thod Nasal Cannula Nasal Cannula Oxygen Flow Rate 2 2 07/22/22 07:00 07/22/22 07:00 07/22/22 07:00 Temperature 97.1 F L Pulse Rate Pulse Rate [Right Pulse Oximeter] 88 90 Respiratory Rate 20 20 20 Blood Pressure [Le ft Upper Arm] Blood Pressure [Ri ght Arm] 87/67 L Pulse Oximetry 93 98 Oxygen Delivery Me thod Nasal Cannula Nasal Cannula Oxygen Flow Rate 0 2 07/22/22 09:40 Temperature Pulse Rate 67 Pulse Rate [Right Pulse Oximeter] Respiratory Rate Blood Pressure [Le ft Upper Arm] Blood Pressure [Ri ght Arm] Pulse Oximetry Oxygen Delivery Me thod Oxygen Flow Rate Labs Labs: Laboratory Results - last 24 hr 07/21/22 07/21/22 07/21/22 18:00 18:10 18:10 WBC 3.54 L RBC 4.60 Hgb 13.4 L Hct 39.4 MCV 86 MCH 29 MCHC 34 RDW Coeff of Cassie 16.5 H Plt Count 73 L Neut % (Auto) 76.8 H Lymph % (Auto) 9.9 L [place] % (Auto) 6.2 Eos % (Auto) 0.0 Baso % (Auto) 0.0 Neut # (Auto) 2.70 Lymph # (Auto) 0.40 L [place] # (Auto) 0.20 Eos # (Auto) 0.00 Baso # (Auto) 0.00 Sodium 127 L Potassium 3.7 Chloride 94 L Carbon Dioxide 30 BUN 41 H Creatinine 0.7 Estimated Creat Clear 58.87 Estimated GFR 101 Glucose 91 Calcium 7.8 L Total Bilirubin 1.6 H Direct Bilirubin 0.6 H AST 149 H ALT 107 H Alkaline Phosphatase 423 H Total Creatine Kinase 872 H Total Protein 5.2 L Albumin 2.9 L SARS-CoV-2 (PCR) 07/21/22 21:05 WBC RBC Hgb Hct MCV MCH MCHC RDW Coeff of Cassie Plt Count Neut % (Auto) Lymph % (Auto) [place] % (Auto) Eos % (Auto) Baso % (Auto) Neut # (Auto) Lymph # (Auto) [place] # (Auto) Eos # (Auto) Baso # (Auto) Sodium Potassium Chloride Carbon Dioxide BUN Creatinine Estimated Creat Clear Estimated GFR Glucose Calcium Total Bilirubin Direct Bilirubin AST ALT Alkaline Phosphatase Total Creatine Kinase Total Protein Albumin SARS-CoV-2 (PCR) Negative SARS-CoV-2
[2022-07-22] MEDS: 5 % DEXTROSE IN LAC RINGER'S 1,000 ML 100 ML IV ×2 (11:29→21:02)
[2022-07-22 11:34] LABS: HCO3 VBG 26 mmol/L (21-28); PCO2 VBG 45 mmHG (40-50); PO2 VBG 36.2 mmHG (25-47); pH VBG 7.364 (7.32-7.43)
[2022-07-22 11:50] LABS: Chloride* 97 mmol/L (96-114)
[2022-07-22 11:51] LABS: Albumin* 2.4 g/dL (3.3-5.0)
[2022-07-22 11:53] LABS: Creatinine* 0.6 mg/dL (0.5-1.5); Est. Creatinine Clearance* 59.05; Estimated Glomerular Filt Rate 106 ml/min
[2022-07-22 11:54] LABS: Alanine Aminotransferase* 107 U/L (4-50); Alkaline Phosphatase* 326 U/L (40-150); Aspartate Amino Transferase* 185 U/L (12-35); Bilirubin Total* 1.6 mg/dL (0.1-1.5); Blood Urea Nitrogen* 41 mg/dL (7-30); Calcium* 6.9 mg/dL (8.4-10.6); Carbon Dioxide* 23 mmol/L (20-32); Glucose* 103 mg/dL (60-115); Potassium* 4.1 mmol/L (3.6-5.1); Total Protein* 4.5 g/dL (6.0-8.3)
[2022-07-22 11:55] LABS: Magnesium* 1.9 mg/dL (1.5-2.6)
[2022-07-22 11:57] LABS: C Reactive Protein* 6.4 mg/dL (0.5-1.0)
[2022-07-22 11:59] LABS: NT Pro B Type NatriureticPept* 4210 pg/mL
[2022-07-22 12:04] LABS: NT Pro B Type NatriureticPept* 11900 pg/mL
[2022-07-22 12:05] LABS: Creatine Kinase* 2002 U/L (54-186); Sodium* 124 mmol/L (135-149)
[2022-07-22 12:14] LABS: Troponin I* 0.25 ng/mL (0.01-0.04)
[2022-07-22 12:28] LABS: C Reactive Protein* 6.7 mg/dL (0.5-1.0)
--- NOTE | 2022-07-22 13:04 | REH.PT ---
Chart reviewed, Hold PT at this time will attempt to Eval tomorrow 07/23.
[2022-07-22] MEDS: 0.9 % SODIUM CHLORIDE 1000 ml 1,000 ML 150 ML IV (14:51)
[2022-07-22] MEDS: CALCIUM GLUC 1,000MG/50 ML 1,000 MG/50 ML BAG 100 MG IVPB (14:51)
--- NOTE | 2022-07-22 15:33 | REH.OT ---
OT evaluation on hold until tomorrow, per MD request.
--- NOTE | 2022-07-22 15:38 | PC.NURSE ---
PT SBA X1 UP TO BR. FEELING STRONGER TODAY. CALCIUM GLUCONATE RUNNING, FLUIDS CHANGED FROM D5LR TO NS TO PORT IN LEFT CHEST. PT A/OX3, PLEASANT AND COOPERATIVE. CONTINUE ZOSYN. CHEST/ABD CT DONE THIS AFTERNOON. BG 79/97. TOLERATING SOFT DIET, DIFFICULTY SWALLOWING. DIARRHEA TODAY, IMODIUM GIVEN. INTERMITTENT COUGH.
[2022-07-22] MEDS: AZITHROMYCIN 250 MG TABLET 500 MG PO (17:01)
--- NOTE | 2022-07-22 17:40 | PM.IMPN1 ---
Progress Note: A&P Assessment and plan (1) Severe protein-calorie malnutrition: Problem details: Multifactorial including difficulties swallowing and severe diarrhea. Patient reports he has a good appetite. For months he has been manipulating his diet to try and manage his malnutrition. Has strong feelings about how this should be done. Status: Acute (2) Hyponatremia: Problem details: A sequelae of his cancer, acute illness, poor hydration, diarrhea and poor nutrition. Continue to encourage food intake and monitor hyponatremia Status: Acute (3) Pancreatic cancer: Problem details: Oncology notes indicate possible consideration of other therapy, 5 FU plus immunotherapy which may have toxicity which will be greater than the limited benefit. CT scan today shows mixed picture of some improvement in liver and pancreatic lesions but new lesion in T11 and worsening ascites. More importantly the patient has had significant recent decline and may no longer even be a candidate for ongoing therapy due to his declining health status. He is now open to considering hospice Status: Acute (4) Cancer of tongue: Problem details: Chronic speech impediment. Status: Acute (5) Pancreatic cancer metastasized to liver: Problem details: Reviewed oncology notes. Status: Acute (6) Diarrhea: Problem details: Multifactorial including some pancreatic insufficiency. He has tried Creon in the past but open to trying it again. I recommend scheduling Imodium as well. Status: Acute (7) Pneumonia: Problem details: Left lower lobe pneumonia seen on chest CT. Continue antibiotics per patient's request Status: Acute (8) Dysphagia: Problem details: Increases difficulties with maintaining nutrition hydration Status: Acute (9) Palliative care encounter: Problem details: Patient is open to hospice. Discussed with patient and how this might look. He wants Dr. Larsen to be notified regarding this as well Status: Acute Plan Continue in-hospital to treat pneumonia, manage hyponatremia, address dehydration and malnutrition and palliative care. Goal is to discharge home with possibly with hospice Time Spent With Patient Total time spent: Total time spent is 35 minutes in discussing with patient other providers and Oncology staff palliative care plan Subjective Date Seen: 07/22/22 Interval history: Patient is in seen a 2nd time today in follow-up of hospital admission for multiple medical problems. Patient with metastatic adenocarcinoma of the pancreas was failing at home. I visited with the patient and his and discussed results of his repeat CT chest abdomen and pelvis, abnormal lab tests and significant issues with health decline. Exam Const: Vital Signs, click to edit/add: Vital Signs - 24 hr 07/21/22 17:57 07/21/22 18:56 07/21/22 18:00 Temperature 95.2 F L Pulse Rate Pulse Rate [Right Pulse Oximeter] 64 67 Respiratory Rate 16 14 Blood Pressure [Le ft Upper Arm] 100/73 94/77 Blood Pressure [Ri ght Arm] Pulse Oximetry 97 Oxygen Delivery Me thod Room Air Oxygen Flow Rate 07/21/22 18:20 07/21/22 18:40 07/21/22 19:00 Temperature Pulse Rate Pulse Rate [Right Pulse Oximeter] 66 63 Respiratory Rate 14 14 14 Blood Pressure [Le ft Upper Arm] 100/73 93/78 97/74 Blood Pressure [Ri ght Arm] Pulse Oximetry Oxygen Delivery Me thod Oxygen Flow Rate 07/21/22 19:20 07/21/22 20:00 07/21/22 21:00 Temperature Pulse Rate Pulse Rate [Right Pulse Oximeter] 66 66 70 Respiratory Rate 14 14 14 Blood Pressure [Le ft Upper Arm] 85/61 L 102/79 115/77 Blood Pressure [Ri ght Arm] Pulse Oximetry 91 88 Oxygen Delivery Me thod Nasal Cannula Nasal Cannula Oxygen Flow Rate 07/21/22 21:37 07/21/22 21:37 07/22/22 04:51 Temperature 96.8 F L Pulse Rate Pulse Rate [Right Pulse Oximeter] 64 Respiratory Rate 18 20 Blood Pressure [Le ft Upper Arm] Blood Pressure [Ri ght Arm] Pulse Oximetry 94 95 Oxygen Delivery Me thod Nasal Cannula Oxygen Flow Rate 1.5 07/22/22 01:05 07/22/22 05:30 07/22/22 08:04 Temperature 97.8 F 97.7 F Pulse Rate 67 Pulse Rate [Right Pulse Oximeter] 81 88 Respiratory Rate 18 20 Blood Pressure [Le ft Upper Arm] Blood Pressure [Ri ght Arm] 102/88 102/84 Pulse Oximetry 95 98 Oxygen Delivery Me thod Nasal Cannula Nasal Cannula Oxygen Flow Rate 2 2 07/22/22 07:00 07/22/22 07:00 07/22/22 07:00 Temperature 97.1 F L Pulse Rate Pulse Rate [Right Pulse Oximeter] 88 90 Respiratory Rate 20 20 20 Blood Pressure [Le ft Upper Arm] Blood Pressure [Ri ght Arm] 87/67 L Pulse Oximetry 93 98 Oxygen Delivery Me thod Nasal Cannula Nasal Cannula Oxygen Flow Rate 0 2 07/22/22 09:40 07/22/22 11:00 07/22/22 15:00 Temperature 97.1 F L Pulse Rate 67 Pulse Rate [Right Pulse Oximeter] 90 Respiratory Rate 20 18 Blood Pressure [Le ft Upper Arm] Blood Pressure [Ri ght Arm] 87/67 L Pulse Oximetry 98 100 Oxygen Delivery Me thod Nasal Cannula Room Air Oxygen Flow Rate 2 07/22/22 15:00 07/22/22 15:00 Temperature 97.4 F L Pulse Rate Pulse Rate [Right Pulse Oximeter] 71 71 Respiratory Rate 18 18 Blood Pressure [Le ft Upper Arm] Blood Pressure [Ri ght Arm] 105/72 Pulse Oximetry 100 Oxygen Delivery Me thod Room Air Oxygen Flow Rate Labs Labs: Laboratory Results - last 24 hr 07/21/22 07/21/22 07/21/22 18:00 18:10 18:10 WBC 3.54 L RBC 4.60 Hgb 13.4 L Hct 39.4 MCV 86 MCH 29 MCHC 34 RDW Coeff of Cassie 16.5 H Plt Count 73 L Neut % (Auto) 76.8 H Lymph % (Auto) 9.9 L [place] % (Auto) 6.2 Eos % (Auto) 0.0 Baso % (Auto) 0.0 Neut # (Auto) 2.70 Lymph # (Auto) 0.40 L [place] # (Auto) 0.20 Eos # (Auto) 0.00 Baso # (Auto) 0.00 VBG pH VBG pCO2 VBG pO2 VBG HCO3 Sodium 127 L Potassium 3.7 Chloride 94 L Carbon Dioxide 30 BUN 41 H Creatinine 0.7 Estimated Creat Clear 58.87 Estimated GFR 101 Glucose 91 Calcium 7.8 L Ionized Calcium Derrick Magnesium Total Bilirubin 1.6 H Direct Bilirubin 0.6 H AST 149 H ALT 107 H Alkaline Phosphatase 423 H Total Creatine Kinase 872 H Troponin I C-Reactive Protein 6.7 H NT-Pro-B Natriuret Pep 4210 Total Protein 5.2 L Albumin 2.9 L Procalcitonin 16.10 H SARS-CoV-2 (PCR) 07/21/22 07/22/22 07/22/22 21:05 11:27 11:27 WBC RBC Hgb Hct MCV MCH MCHC RDW Coeff of Cassie Plt Count Neut % (Auto) Lymph % (Auto) [place] % (Auto) Eos % (Auto) Baso % (Auto) Neut # (Auto) Lymph # (Auto) [place] # (Auto) Eos # (Auto) Baso # (Auto) VBG pH 7.364 VBG pCO2 45 VBG pO2 36.2 VBG HCO3 26 Sodium 124 L* Potassium 4.1 Chloride 97 Carbon Dioxide 23 BUN 41 H Creatinine 0.6 Estimated Creat Clear 59.05 Estimated GFR 106 Glucose 103 Calcium 6.9 L Ionized Calcium Derrick 1.00 L Magnesium 1.9 Total Bilirubin 1.6 H Direct Bilirubin AST 185 H ALT 107 H Alkaline Phosphatase 326 H Total Creatine Kinase 2002 H Troponin I 0.25 H* C-Reactive Protein 6.4 H NT-Pro-B Natriuret Pep 04492 Total Protein 4.5 L Albumin 2.4 L Procalcitonin 13.20 H SARS-CoV-2 (PCR) Negative SARS-CoV-2
[2022-07-22] MEDS: cefTRIAXone 1 GM in 0.9 % SODIUM CHLORIDE Mini-bag 100 ML IVPB (19:32)
--- NOTE | 2022-07-22 23:47 | PC.NURSE ---
Shift Note [id number]: Pt difficult to understand but is helpful in pt's communication with staff. BP's have been soft, 80's systolically but pt has been asymptomatic. He is walking to the BR with assist x1. One loose stool this evening, Imodium is now scheduled per MD. BG has also been on the low side: 81 and 82, pt resistant to juice or snacking but with family at bedside he did eat some applesauce and a few bites of cake. BG check at 2200= 78, pt was given some orange juice with 3 sugar pk's stirred in. Maintenance fluids switched to D5/LR and Dr. Deepthi bhakta.
[2022-07-23] VITALS (7 sets, daily range): BP systolic 75–97; BP diastolic 53–69; PULSE 67–80; RESP 14–20; TEMP 36.4–37; O2SAT 95–98
[2022-07-23] MEDS: 5 % DEXTROSE IN LAC RINGER'S 1,000 ML 100 ML IV (06:25)
[2022-07-23] MEDS: cefTRIAXone 1 GM in 0.9 % SODIUM CHLORIDE Mini-bag 100 ML IVPB (06:26)
[2022-07-23 07:11] LABS: Chloride* 97 mmol/L (96-114); Sodium* 126 mmol/L (135-149)
[2022-07-23 07:14] LABS: Carbon Dioxide* 27 mmol/L (20-32); Creatinine* 0.8 mg/dL (0.5-1.5); Est. Creatinine Clearance* 59.05; Estimated Glomerular Filt Rate 97 ml/min; Hematocrit 36.2 % (37.0-53.0); Hemoglobin* 12.6 gm/dL (13.5-17.5); Mean Corpuscular HGB Conc 35 gm/dL (32-36); Mean Corpuscular Hemoglobin 29 pg (26-34); Mean Corpuscular Volume 84 fL (80-100); Monocytes Percent Auto 4.1 % (0.0-11.0); Neutrophils Percent Auto 46.9 % (42.0-72.0); Platelet Count* 52 K/uL (140-440); RDW Coefficient of Variation % 16.3 % (11.5-15.5)
[2022-07-23 07:15] LABS: Blood Urea Nitrogen* 38 mg/dL (7-30); Glucose* 87 mg/dL (60-115)
[2022-07-23 07:43] LABS: White Blood Count* 0.49 K/uL (4.50-11.00)
[2022-07-23] MEDS: LOPERAMIDE HCL 2 MG CAPSULE PO (07:56)
[2022-07-23] MEDS: PANCREALIPASE (12,38,60) CAP 1 CAP PO (07:56)
[2022-07-23] MEDS: AZITHROMYCIN 250 MG TABLET 500 MG PO (09:06)
[2022-07-23] MEDS: SODIUM CHLORIDE 0.9 % (FLUSH) 10 ML SYRINGE 5 ML IVF (09:09)
--- NOTE | 2022-07-23 10:53 | REH.PT ---
No PT assessment needed per verbal order from MD Prince.
[2022-07-23 11:07] LABS: Slide Review Reflex No
--- NOTE | 2022-07-23 11:14 | PC.SOCIAL ---
Social Work note- Per MD order for hospice services. Met with patient and daughter. Patient choose [facility] from list of hospices that was provided. Explained hospice philosophy and services. Answered questions. Called [facility] and they can take patient on Tuesday or Tuesday. Patient would like hospice to start on Tuesday07/26/2022. Plan: Patient will discharge to home today. Hospice will begin on Tuesday07/26/2022.
[2022-07-23] MEDS: PROCHLORPERAZINE 5 MG/ML VIAL 10 MG IV (11:28)
[2022-07-23] MEDS: HEPARIN 500 UNIT/5 ML SYRINGE IVF (11:34)
--- NOTE | 2022-07-23 12:37 | PC.NURSE ---
Discharge: Patient and daughter has met with MD and social science instructor prior to discharge. Port heparinized and deaccessed. Discharge instructions given to patient and daughter, questions answered as needed. Reviewed new medication orders. Patient discharged @ 1225 via wheelchair, discharged to home.
--- NOTE | 2022-07-23 17:01 | PM.DS1 ---
DS: Providers Provider Date Seen: 07/23/22 Date of admission: 07/21/22 23:17 Primary care physician: Nika Kyle PA-C Admitting Clinician: Lilly Brown MD Attending Physician on discharge: Lilly Brown MD Date of Discharge: 07/23/22 DS: Diagnosis Discharge Diagnosis (1) Severe protein-calorie malnutrition: Status: Acute Problem details: Multifactorial including difficulties swallowing and severe diarrhea. Patient reports he has a good appetite. For months he has been manipulating his diet to try and manage his malnutrition. Has strong feelings about how this should be done. (2) Hyponatremia: Status: Acute Problem details: A sequelae of his cancer, acute illness, poor hydration, diarrhea and poor nutrition. Continue to encourage food intake and monitor hyponatremia (3) Pancreatic cancer: Status: Acute Problem details: Oncology notes indicate possible consideration of other therapy, 5 FU plus immunotherapy which may have toxicity which will be greater than the limited benefit. CT scan today shows mixed picture of some improvement in liver and pancreatic lesions but new lesion in T11 and worsening ascites. More importantly the patient has had significant recent decline and may no longer even be a candidate for ongoing therapy due to his declining health status. He is now open to considering hospice (4) Cancer of tongue: Status: Acute Problem details: Chronic speech impediment. (5) Pancreatic cancer metastasized to liver: Status: Acute Problem details: Reviewed oncology notes. (6) Diarrhea: Status: Acute Problem details: Multifactorial including some pancreatic insufficiency. He has tried Creon in the past but open to trying it again. I recommend scheduling Imodium as well. (7) Pneumonia: Status: Acute Problem details: Left lower lobe pneumonia seen on chest CT. Continue antibiotics per patient's request (8) Dysphagia: Status: Acute Problem details: Increases difficulties with maintaining nutrition hydration (9) Palliative care encounter: Status: Acute Problem details: Patient is open to hospice. Discussed with patient and how this might look. Discussed with oncology team and they will contact Dr. Larsen (10) Chemotherapy-induced neutropenia: Status: Acute Problem details: At this point no further intervention for this other than continued antibiotics at patient's request. Moving to hospice (11) Hypoglycemia: Status: Acute Problem details: I suspect he cannot supply enough calories to maintain a blood sugar nor nor does he seem to have the ability to mobilize glycogen to maintain euglycemia. We discussed briefly increasing calories and decreased duration between feeds, even considering a short-term continuous blood glucose monitor a freestyle Hollie. DS: Summary Hospital Course Hospital Course: 66-year-old male admitted to the hospital with multiple problems related to stage IV adenocarcinoma of the pancreas. Daily discussions about goals of care have led to the occlusion that he will go to hospice. He still wants some treatment for medical problems in this case his current pneumonia. He also would like blood sugar monitoring because of his hypoglycemia. Beyond that cares will be focused on comfort relieving symptoms particularly diarrhea. He chooses to go home with his family. Hospice is set up for him. Status at Discharge Cognitive/behavioral status at discharge: At baseline Functional status at discharge: uses cane/walker Overall status at discharge: other (Patient is on a relatively steep decline in his health with severe malnutrition, severe weakness, difficulty feeding, hypoglycemia, neutropenia, pneumonia. Hospice) Time Spent with Patient Time attestation: Total time spent providing and/or coordinating discharge services: Time spent: Greater than 30 minutes Exam Narrative: Exam Narrative: He is alert and appears in no distress. He reports he had a good night and is feeling better this morning. He is anxious to go home. He continues to reaffirmed that he is desiring of hospice care in his home. He is cachectic but appears in no obvious distress pre the. Breathing room air. Const: Vital Signs, click to edit/add: Vital Signs - 24 hr 07/22/22 19:00 07/23/22 01:40 07/23/22 01:40 Temperature 96.7 F L Pulse Rate Pulse Rate [Right Pulse Oximeter] 71 Respiratory Rate 18 14 14 Blood Pressure [Ri ght Arm] 88/63 L Pulse Oximetry 99 96 Oxygen Delivery Me thod Room Air Room Air 07/23/22 01:40 07/23/22 03:00 07/23/22 04:00 Temperature 98.6 F Pulse Rate Pulse Rate [Right Pulse Oximeter] 71 80 Respiratory Rate 14 20 Blood Pressure [Ri ght Arm] 75/53 L 97/69 Pulse Oximetry 96 95 95 Oxygen Delivery Me thod Room Air Room Air 07/23/22 07:31 07/23/22 07:51 07/23/22 11:43 Temperature 97.6 F 97.6 F Pulse Rate 67 Pulse Rate [Right Pulse Oximeter] 72 Respiratory Rate 18 18 Blood Pressure [Ri ght Arm] 82/57 L Pulse Oximetry 98 98 Oxygen Delivery Me thod Room Air Room Air 07/23/22 12:35 Temperature 97.6 F Pulse Rate 67 Pulse Rate [Right Pulse Oximeter] Respiratory Rate 18 Blood Pressure [Ri ght Arm] Pulse Oximetry Oxygen Delivery Me thod Documenting provider has reviewed patient's vital signs: yes DS: Data Data Completed and Pending Labs on day of discharge: Labs from last 24 hours 07/23/22 07/23/22 06:20 06:20 WBC 0.49 L* RBC 4.30 Hgb 12.6 L Hct 36.2 L MCV 84 MCH 29 MCHC 35 RDW Coeff of Cassie 16.3 H Plt Count 52 L Neut % (Auto) 46.9 Lymph % (Auto) 49.0 H Meeker % (Auto) 4.1 Eos % (Auto) 0.0 Baso % (Auto) 0.0 Neut # (Auto) 0.20 L Lymph # (Auto) 0.20 L Meeker # (Auto) 0.00 Eos # (Auto) 0.00 Baso # (Auto) 0.00 Sodium 126 L Potassium 4.0 Chloride 97 Carbon Dioxide 27 BUN 38 H Creatinine 0.8 Estimated Creat Clear 59.05 Estimated GFR 97 Glucose 87 Calcium 7.0 L Discharge Plan Discharge Disposition: Xfer Home- (Hospice) Date of Admission: 07/21/22 23:17 Attending Provider on Discharge: Ty Prince Primary Care Provider: Nika Kyle Condition: Unchanged Anticipated Discharge Date/Time: 07/23/22 11:16 Discharge Medications: New levofloxacin 500 mg tablet 500 mg PO Q24H Qty: 5 0RF Continued loperamide 2 mg capsule 2 mg PO Q6H PRN Metamucil 3.4 gram/5.4 gram powder 1 tbsp PO DAILY Rx Instructions: mix into at least 8 oz of water or juice before administering calcium carbonate [Tums] 200 mg calcium (500 mg) tablet,chewable 200 mg PO QID PRN potassium chloride [Klor-Con] 20 mEq packet 20 meq PO DAILY ondansetron 4 mg tablet,disintegrating 4 mg PO Q8H PRN (Reason: nausea and vomiting) Qty: 30 1RF prochlorperazine maleate 10 mg tablet 10 mg PO TID PRN (Reason: nausea and vomiting) Qty: 30 1RF Rx Instructions: Take first for CHEMO related nausea. lorazepam 0.5 mg tablet 0.5 mg PO BID PRN (Reason: nausea and vomiting) Qty: 30 0RF Rx Instructions: Take 1 tab if needed for insomnia related to chemotherapy. May also take for nausea not relieved with other antinausea medications. Discharge Orders: Discharge Order (Routine); Ordered 07/23/22 Ordered By: Ty Prince Additional Instructions: You have had problems with low blood sugar. This is due to your malnutrition and cancer in your liver. I recommend that you eat a diet of simple carbohydrates frequently during the day and possibly also at night. I have ordered a glucometer so your family can check your blood sugar if you are not feeling right or if they observe that her brain is not working properly. These might be signs of low blood sugar. I have prescribed an antibiotic for you, Levaquin, to treat her pneumonia. This is a very strong antibiotic. It might make your diarrhea worse. It might make your low blood sugars worse. You could choose to stop taking it if it is making you feel worse. Follow Up Appointments: Nika Kyle PA-C [Primary Care Provider] - (Call and schedule an appointment as needed.) Forms: [employer] [employer] Info Instructions Discharge Comments: I fear that your health condition will continue to decline. I am glad that we can arrange for hospice to come to your home and help you and your family manage the symptoms you will have.
== END 2022-07-23 12:35 | disposition hospice, home (50) | DRG 435 ==
LOC: ED 20:31 → MEDSURG 21:01
PROVIDERS: Family Medicine; Admitting Provider Family Medicine; Emergency Provider Emergency Medicine Emergency Medical Services; PCP Internal Medicine; Visit Provider Family Medicine
DX: C25.9 Malignant neoplasm of pancreas, unspecified (principal); E43 Unspecified severe protein-calorie malnutrition; J18.9 Pneumonia, unspecified organism; E87.1 Hypo-osmolality and hyponatremia; C78.7 Secondary malignant neoplasm of liver and intrahepatic bile duct; R64 Cachexia; Z68.1 Body mass index [BMI] 19.9 or less, adult; D70.1 Agranulocytosis secondary to cancer chemotherapy; E16.2 Hypoglycemia, unspecified; E87.6 Hypokalemia; Z95.828 Presence of other vascular implants and grafts; R74.01 Elevation of levels of liver transaminase levels; E86.0 Dehydration; R60.0 Localized edema; R13.10 Dysphagia, unspecified; R19.7 Diarrhea, unspecified; T45.1X5A Adverse effect of antineoplastic and immunosuppressive drugs, initial encounter; G62.0 Drug-induced polyneuropathy; Z85.810 Personal history of malignant neoplasm of tongue; W19.XXXA Unspecified fall, initial encounter; Y92.512 Supermarket, store or market as the place of occurrence of the external cause; I95.9 Hypotension, unspecified
CPT/HCPCS: 36415; 36591; 70450; 71045; 71260; 74177; 80048; 80053; 80076; 82330; 82550; 82803; 82962; 83735; 83880; 84145; 84484; 85025; 86140; 87635; 93005; 94664; 94761; 96368; 96376; 96413; 96415; 96416; 99212; 99215; 99285; G0378; A9270; J0610; J0640; J0696; J0780; J1100; J1626; J1642; J2543; J7030; J7050; J9190; J9263; Q9967; S5010

== ENCOUNTER 2022-07-22 10:00 | Outpatient (RCR) | payer MEDICARE, BC, SELFPAY ==
[2022-01-26] MEDS: SODIUM CHLORIDE 0.9 % (FLUSH) 10 ML SYRINGE IVF (10:13)
[2022-01-26 10:20] VITALS: BP 125/79; PULSE 77; RESP 16; TEMP 36.2; O2SAT 99
[2022-01-26 10:35] LABS: Basophils Percent Auto 0.3 % (0.0-3.0); Eosinophils Percent Auto 0.3 % (0.0-7.0); Hematocrit 42.6 % (37.0-53.0); Hemoglobin* 14.3 gm/dL (13.5-17.5); Lymphocytes Percent Auto 11.4 % (20-44); Mean Corpuscular HGB Conc 34 gm/dL (32-36); Mean Corpuscular Hemoglobin 30 pg (26-34); Mean Corpuscular Volume 88 fL (80-100); Monocytes Percent Auto 13.6 % (0.0-11.0); Neutrophils Percent Auto 74.4 % (42.0-72.0); Platelet Count* 104 K/uL (140-440); RDW Coefficient of Variation % 12.6 % (11.5-15.5); Red Blood Count 4.83 m/uL (4.30-5.90); White Blood Count* 3.32 K/uL (4.50-11.00)
[2022-01-26 10:43] LABS: Slide Review Reflex No
[2022-01-26 10:48] LABS: Chloride* 97 mmol/L (96-114)
[2022-01-26 10:49] LABS: Albumin* 4.2 g/dL (3.3-5.0); Potassium* 4.1 mmol/L (3.6-5.1); Sodium* 134 mmol/L (135-149)
[2022-01-26 10:51] LABS: Carbon Dioxide* 32 mmol/L (20-32); Creatinine* 0.7 mg/dL (0.5-1.5); Estimated Glomerular Filt Rate 101 ml/min
[2022-01-26 10:52] LABS: Alanine Aminotransferase* 106 U/L (4-50); Alkaline Phosphatase* 333 U/L (40-150); Aspartate Amino Transferase* 66 U/L (12-35); Bilirubin Total* 0.8 mg/dL (0.1-1.5); Blood Urea Nitrogen* 21 mg/dL (7-30); Calcium* 9.3 mg/dL (8.4-10.6); Glucose* 182 mg/dL (60-115); Total Protein* 6.9 g/dL (6.0-8.3)
--- NOTE | 2022-01-26 12:01 | ONC.NURNOTE ---
New chemo teaching -reviewed binder of information -reviewed after hours management, fevers, calling with concerns -in depth conversation about nutrition- see nurses note -pt holding creon at this time and monitoring stools for fatty diarrhea -discussed antiemetics post chemo, managing fatigue -discussed possible side effects of chemotherapy questions addressed -consents signed for chemo, ROGERS and HIPPA
--- NOTE | 2022-01-26 12:04 | ONC.NURNOTE ---
Nutrition -Ben has consulted with [place] [facility]- reports that there has not been much information that has been helpful -he has stopped the creon due to nausea/vaomiting and diarrhea reports decrease in nausea and minimal diarrhea since stopping creon he is monitoring for fatty stools per Dr Larsen's recommendation Ben reports concerns regarding his weight loss and inability to regain the 20#'s he lost over the last few months- -however Ben states that he has been unable to regain weight despite movtivation to do so This is what he can currently tolerated per day Breakfast boost 550 and his own protein shake (whole milk, melaluca brand protein powder 20gm/120 mustapha serv, some times some fresh fruit, will add 1/2 dannon yogurt to the pm shake) Late after noon- additional boost 550 and protein shake Ben finds other supplements to be too heavy, unable to tolerate meals- although 2 months ago he was eating 2 small meals per day Discussed some possible food items- rice, cheese, ice cream, potatoes, eggs, toast, butter, sauces, does not tolerate noodles justowriter operator will touch base with dietitian for futher suggestions, Ben denies referral to [place] dietitian for MNT will continue to follow during treatment
[2022-01-26] MEDS: dexAMETHasone 10 MG in 0.9 % SODIUM CHLORIDE 100 ml 100 ML 404 MG IVPB (12:09)
[2022-01-26] MEDS: GRANISETRON 1 MG/ML inj IVP (12:09)
--- NOTE | 2022-01-26 12:27 | ONC.NURNOTE ---
NCCN Distress Screening =3 no social work consult - physical symptoms noted on distress screening- Ben states thats these are all challenges , but don't need further addressing at this time sleep, nausea, food issues, pain, fatigue, constipation
--- NOTE | 2022-01-27 12:39 | ONC.NURNOTE ---
Patient called following first gemzar infusion that he received yesterday. He notes some diarrhea, but not sure if this is different from usual since diagnosis - will contact us if he feels this is getting worse after starting chemotherapy. He also notes fatigue, which he was told was normal and would most likely improve over the next few days.
[2022-02-02 09:13] VITALS: BP 130/77; PULSE 70; RESP 16; TEMP 36.4; O2SAT 100
[2022-02-02 09:45] LABS: Basophils Percent Auto 0.4 % (0.0-3.0); Eosinophils Percent Auto 0.4 % (0.0-7.0); Hematocrit 39.5 % (37.0-53.0); Hemoglobin* 13.5 gm/dL (13.5-17.5); Lymphocytes Percent Auto 15.3 % (20-44); Mean Corpuscular HGB Conc 34 gm/dL (32-36); Mean Corpuscular Hemoglobin 30 pg (26-34); Mean Corpuscular Volume 88 fL (80-100); Monocytes Percent Auto 12.1 % (0.0-11.0); Neutrophils Percent Auto 71.8 % (42.0-72.0); Platelet Count* 75 K/uL (140-440); RDW Coefficient of Variation % 12.7 % (11.5-15.5); Red Blood Count 4.51 m/uL (4.30-5.90); White Blood Count* 2.48 K/uL (4.50-11.00)
[2022-02-02 09:48] LABS: Slide Review Reflex No
[2022-02-02 09:50] LABS: Albumin* 4.2 g/dL (3.3-5.0); Chloride* 95 mmol/L (96-114); Potassium* 4.5 mmol/L (3.6-5.1); Sodium* 132 mmol/L (135-149)
[2022-02-02 09:53] LABS: Alanine Aminotransferase* 198 U/L (4-50); Alkaline Phosphatase* 568 U/L (40-150); Aspartate Amino Transferase* 119 U/L (12-35); Blood Urea Nitrogen* 24 mg/dL (7-30); Carbon Dioxide* 29 mmol/L (20-32); Creatinine* 0.6 mg/dL (0.5-1.5); Estimated Glomerular Filt Rate 106 ml/min; Glucose* 221 mg/dL (60-115); Total Protein* 6.7 g/dL (6.0-8.3)
[2022-02-02 09:54] LABS: Calcium* 9.3 mg/dL (8.4-10.6)
--- NOTE | 2022-02-02 11:17 | ONC.NURNOTE ---
Pt here for C1D8 Gemzar. VSS. Platelets 75, AST-119, ALT- 198, Alk phos-568. Furniture Sprayer called and spoke to Dr. Larsen. Biliurubin, creatinine WNL. Order received to continue with Gemzar day 8 at 75%. Pt also educated on when to call [facility] for symptoms of obstruction (jaundice, stool color changes, dark urine). Pt and spouse verbalized understanding of plan of care. Pt to return in 1 week for labs/chemo.
[2022-02-02] MEDS: dexAMETHasone 10 MG in 0.9 % SODIUM CHLORIDE 100 ml 100 ML 404 MG IVPB (11:33)
[2022-02-02] MEDS: GRANISETRON 1 MG/ML inj IVP (11:58)
[2022-02-02] MEDS: 0.9 % SODIUM CHLORIDE 250 ml IV (12:43)
[2022-02-02] MEDS: HEPARIN 500 UNIT/5 ML SYRINGE IVF (12:43)
[2022-02-02] MEDS: SODIUM CHLORIDE 0.9 % (FLUSH) 10 ML SYRINGE IVF (12:43)
--- NOTE | 2022-02-03 08:55 | ONC.NURNOTE ---
[facility] took Crian for 3 days then stopped it January 20. [facility] has been having rt shoulder and lt shoulder discomfort on and off since. enc. pt to see his primary
[2022-02-08 11:44] LABS: Basophils Percent Auto 0.6 % (0.0-3.0); Eosinophils Percent Auto 0.6 % (0.0-7.0); Hematocrit 39.6 % (37.0-53.0); Hemoglobin* 13.4 gm/dL (13.5-17.5); Lymphocytes Percent Auto 27.3 % (20-44); Mean Corpuscular HGB Conc 34 gm/dL (32-36); Mean Corpuscular Hemoglobin 30 pg (26-34); Mean Corpuscular Volume 88 fL (80-100); Monocytes Percent Auto 12.5 % (0.0-11.0); Platelet Count* 58 K/uL (140-440); RDW Coefficient of Variation % 13.1 % (11.5-15.5)
[2022-02-08 11:46] LABS: White Blood Count* 1.76 K/uL (4.50-11.00)
[2022-02-08 11:47] LABS: Slide Review Reflex No
[2022-02-08 11:57] LABS: Albumin* 4.1 g/dL (3.3-5.0); Chloride* 95 mmol/L (96-114)
[2022-02-08 11:58] LABS: Potassium* 4.1 mmol/L (3.6-5.1); Sodium* 131 mmol/L (135-149)
[2022-02-08 12:00] LABS: Aspartate Amino Transferase* 169 U/L (12-35); Bilirubin Total* 0.9 mg/dL (0.1-1.5); Carbon Dioxide* 29 mmol/L (20-32); Creatinine* 0.6 mg/dL (0.5-1.5); Estimated Glomerular Filt Rate 106 ml/min; Total Protein* 6.9 g/dL (6.0-8.3)
[2022-02-08 12:01] LABS: Alanine Aminotransferase* 331 U/L (4-50); Alkaline Phosphatase* 643 U/L (40-150); Blood Urea Nitrogen* 23 mg/dL (7-30); Calcium* 9.3 mg/dL (8.4-10.6); Glucose* 205 mg/dL (60-115)
--- NOTE | 2022-02-12 13:20 | URNOTE ---
Received request for prior authorization for Pegfilgrastim ([id number]). Pt has medicare primary, prior authorization is not required as services are based on medical necessity and follow medicare guidelines.
[2022-02-15 11:17] LABS: Basophils Percent Auto 0.6 % (0.0-3.0); Eosinophils Percent Auto 1.4 % (0.0-7.0); Hematocrit 40.8 % (37.0-53.0); Hemoglobin* 13.8 gm/dL (13.5-17.5); Lymphocytes Percent Auto 19.1 % (20-44); Mean Corpuscular HGB Conc 34 gm/dL (32-36); Mean Corpuscular Hemoglobin 30 pg (26-34); Mean Corpuscular Volume 89 fL (80-100); Monocytes Percent Auto 17.1 % (0.0-11.0); Neutrophils Percent Auto 61.8 % (42.0-72.0); Platelet Count* 239 K/uL (140-440); RDW Coefficient of Variation % 14.4 % (11.5-15.5)
[2022-02-15 11:19] LABS: Slide Review Reflex No
[2022-02-15 11:32] LABS: Albumin* 4.3 g/dL (3.3-5.0); Chloride* 96 mmol/L (96-114); Potassium* 4.3 mmol/L (3.6-5.1); Sodium* 133 mmol/L (135-149)
[2022-02-15 11:34] LABS: Creatinine* 0.6 mg/dL (0.5-1.5); Estimated Glomerular Filt Rate 106 ml/min
[2022-02-15 11:35] LABS: Alanine Aminotransferase* 168 U/L (4-50); Alkaline Phosphatase* 736 U/L (40-150); Aspartate Amino Transferase* 85 U/L (12-35); Bilirubin Total* 1.1 mg/dL (0.1-1.5); Blood Urea Nitrogen* 24 mg/dL (7-30); Calcium* 9.5 mg/dL (8.4-10.6); Carbon Dioxide* 29 mmol/L (20-32); Glucose* 112 mg/dL (60-115)
[2022-02-15] MEDS: HEPARIN 500 UNIT/5 ML SYRINGE IVF (15:35)
[2022-02-15] MEDS: SODIUM CHLORIDE 0.9 % (FLUSH) 10 ML SYRINGE IVF (15:35)
--- NOTE | 2022-02-15 15:50 | ONC.NURNOTE ---
Labs viewed by Dr. Larsen. LFT elevated. Having ERCP later today. prob repeat LFT tomorrow before chemo.
[2022-02-16 09:43] VITALS: BP 114/68; PULSE 96; RESP 16; TEMP 36.8; O2SAT 98
[2022-02-16 11:00] LABS: Albumin* 3.9 g/dL (3.3-5.0)
[2022-02-16 11:03] LABS: Aspartate Amino Transferase* 90 U/L (12-35); Bilirubin Direct* 0.5 mg/dL (0.0-0.5); Bilirubin Total* 1.2 mg/dL (0.1-1.5); Total Protein* 6.4 g/dL (6.0-8.3)
[2022-02-16 11:04] LABS: Alanine Aminotransferase* 154 U/L (4-50); Alkaline Phosphatase* 646 U/L (40-150)
[2022-02-16] MEDS: dexAMETHasone 10 MG in 0.9 % SODIUM CHLORIDE 100 ml 100 ML 404 MG IVPB (12:30)
[2022-02-16] MEDS: GRANISETRON 1 MG/ML inj IVP (12:30)
--- NOTE | 2022-02-16 15:35 | ONC.NURNOTE ---
Labs reviewed by Krysten GATES. After discussion with group underwriter, Krysten, and pt, pt requesting chemotherapy today. Pt does not want to wait another week, pt did have an ERCP yesterday and LFTs are slightly better. Pt tolerated infusion well without difficulty. Pt to return on 02/17/22 for Neulasta.
--- NOTE | 2022-02-16 16:31 | ONC.NURNOTE ---
Senior Control Systems Engineer consult and past nutrition consult from [place] faxed to [facility] at fax #[phone].
[2022-02-17 15:07] VITALS: BP 113/74; PULSE 82; RESP 16; TEMP 36.8; O2SAT 100
[2022-02-17] MEDS: PEGFILGRASTIM 6 MG/0.6 ML SYRINGE SUBCUT (15:07)
--- NOTE | 2022-02-23 14:45 | ONC.NURNOTE ---
Social Worker Masters received call from Ben with an update on status since taking Abraxane/Gemzar reports feeling the worst he has ever had post chemo diarrhea past week- some days with regular frequency and some days only 1-2 times, proposal lead writer was not able to get details on the number of stools per day Ben was previously advised to take one imodium after a loose stool - and did not agree with writers suggestion to try one imodium in the am before eating- as he is then not able to assess the status of the diarrhea for that day Ben is holding the creon and is not interested in restarting at this time He has stopped his whole milk milkshakes due to diarrhea and this has helped slow down the # of episodes per day so for nutrition he is now only using the boost 500 daily nutritional referral sent last week Ben has contacted his [place] team with some questions: Is the diarrhea related to his pancreatic cancer or the treatment proposal lead writer notes that diarrhea is present in 44% of those on gemzar and abraxane- this was discussed Due to the significant impact of QOL- proposal lead writer urged Ben to come in to see Dr Last on - she has a cancelation Ben reluctantly agreed to come in for appt
[2022-03-02 10:39] VITALS: BP 113/76; PULSE 74; RESP 16; TEMP 36.2; O2SAT 100
[2022-03-02 10:56] LABS: Basophils Absolute Auto 0.04 K/uL (0.00-0.30); Basophils Percent Auto 0.6 % (0.0-3.0); Eosinophils Absolute Auto 0.07 K/uL (0.00-0.50); Eosinophils Percent Auto 1.1 % (0.0-7.0); Hematocrit 39.9 % (37.0-53.0); Hemoglobin* 13.3 gm/dL (13.5-17.5); Immature Granulocytes Abs Auto 0.04 K/uL (0.00-0.30); Lymphocytes Percent Auto 10.5 % (20-44); Mean Corpuscular HGB Conc 33 gm/dL (32-36); Mean Corpuscular Hemoglobin 30 pg (26-34); Mean Corpuscular Volume 90 fL (80-100); Monocytes Percent Auto 10.7 % (0.0-11.0); Neutrophils Percent Auto 76.5 % (42.0-72.0); Platelet Count* 136 K/uL (140-440); RDW Coefficient of Variation % 16.2 % (11.5-15.5); Red Blood Count 4.44 m/uL (4.30-5.90); White Blood Count* 6.65 K/uL (4.50-11.00)
[2022-03-02 11:01] LABS: Slide Review Reflex No
[2022-03-02 11:21] LABS: Albumin* 3.8 g/dL (3.3-5.0)
[2022-03-02 11:22] LABS: Chloride* 96 mmol/L (96-114); Sodium* 131 mmol/L (135-149)
[2022-03-02 11:24] LABS: Aspartate Amino Transferase* 49 U/L (12-35); Bilirubin Total* 0.9 mg/dL (0.1-1.5); Carbon Dioxide* 30 mmol/L (20-32); Creatinine* 0.6 mg/dL (0.5-1.5); Estimated Glomerular Filt Rate 106 ml/min
[2022-03-02 11:25] LABS: Alanine Aminotransferase* 53 U/L (4-50); Alkaline Phosphatase* 367 U/L (40-150); Blood Urea Nitrogen* 23 mg/dL (7-30); Calcium* 8.9 mg/dL (8.4-10.6); Glucose* 157 mg/dL (60-115); Total Protein* 6.2 g/dL (6.0-8.3)
[2022-03-02] MEDS: dexAMETHasone 10 MG in 0.9 % SODIUM CHLORIDE 100 ml 100 ML 404 MG IVPB (12:07)
[2022-03-02] MEDS: GRANISETRON 1 MG/ML inj IVP (12:07)
[2022-03-03] MEDS: PEGFILGRASTIM 6 MG/0.6 ML SYRINGE SUBCUT (16:18)
[2022-03-03 16:26] VITALS: BP 107/69; PULSE 78; RESP 20; TEMP 36.6; O2SAT 98
[2022-03-16 11:53] LABS: Albumin* 3.6 g/dL (3.3-5.0)
[2022-03-16 11:54] LABS: Chloride* 96 mmol/L (96-114); Potassium* 4.2 mmol/L (3.6-5.1); Sodium* 132 mmol/L (135-149)
[2022-03-16 11:56] LABS: Aspartate Amino Transferase* 40 U/L (12-35); Bilirubin Total* 0.6 mg/dL (0.1-1.5); Carbon Dioxide* 29 mmol/L (20-32); Creatinine* 0.6 mg/dL (0.5-1.5); Estimated Glomerular Filt Rate 106 ml/min; Total Protein* 6.2 g/dL (6.0-8.3)
[2022-03-16 11:57] LABS: Alanine Aminotransferase* 43 U/L (4-50); Alkaline Phosphatase* 383 U/L (40-150); Blood Urea Nitrogen* 18 mg/dL (7-30); Calcium* 8.7 mg/dL (8.4-10.6); Glucose* 176 mg/dL (60-115)
[2022-03-16 11:58] LABS: Basophils Absolute Auto 0.02 K/uL (0.00-0.30); Basophils Percent Auto 0.2 % (0.0-3.0); Eosinophils Absolute Auto 0.13 K/uL (0.00-0.50); Eosinophils Percent Auto 1.2 % (0.0-7.0); Hematocrit 39.8 % (37.0-53.0); Hemoglobin* 13.2 gm/dL (13.5-17.5); Immature Granulocytes Abs Auto 0.05 K/uL (0.00-0.30); Lymphocytes Percent Auto 9.9 % (20-44); Mean Corpuscular HGB Conc 33 gm/dL (32-36); Mean Corpuscular Hemoglobin 30 pg (26-34); Mean Corpuscular Volume 92 fL (80-100); Monocytes Percent Auto 5.7 % (0.0-11.0); Neutrophils Percent Auto 82.5 % (42.0-72.0); Platelet Count* 161 K/uL (140-440); RDW Coefficient of Variation % 17.3 % (11.5-15.5); Red Blood Count 4.35 m/uL (4.30-5.90); White Blood Count* 10.76 K/uL (4.50-11.00)
[2022-03-16 12:19] LABS: Slide Review Reflex No
[2022-03-16] MEDS: dexAMETHasone 10 MG in 0.9 % SODIUM CHLORIDE 100 ml 100 ML 404 MG IVPB (12:44)
[2022-03-16] MEDS: GRANISETRON 1 MG/ML inj IVP (12:44)
[2022-03-16] MEDS: SODIUM CHLORIDE 0.9 % (FLUSH) 10 ML SYRINGE IVF ×2 (12:44→14:55)
[2022-03-16] MEDS: 0.9 % SODIUM CHLORIDE 250 ml IV (12:45)
[2022-03-16] MEDS: HEPARIN 500 UNIT/5 ML SYRINGE IVF (14:55)
[2022-03-16 15:10] VITALS: BP 105/73; PULSE 80; RESP 20; TEMP 36.2; O2SAT 100
--- NOTE | 2022-03-16 15:14 | ONC.NURNOTE ---
Pt following tutorial laboratory supervisor recommendations; special ordered shake 6x/day. Having diarrhea; managing well (2 loose stools/day) with Immodium 2x/day. Reports some reflux last 3 days; will start tums. Reports gassiness; recommended simethicone. Pt reinforces that his diet routine/bowel management is overall going well; he is out and about and meeting with friends, he feels he is doing well and does not need intervention at this time.
[2022-03-17 15:00] VITALS: BP 98/60; PULSE 70; RESP 14; TEMP 36.1; O2SAT 98
[2022-03-17] MEDS: PEGFILGRASTIM 6 MG/0.6 ML SYRINGE SUBCUT (15:18)
[2022-03-29 14:32] LABS: Basophils Percent Auto 0.2 % (0.0-3.0); Eosinophils Percent Auto 1.7 % (0.0-7.0); Hematocrit 37.4 % (37.0-53.0); Hemoglobin* 12.3 gm/dL (13.5-17.5); Immature Granulocytes Abs Auto 0.05 K/uL (0.00-0.30); Lymphocytes Percent Auto 10.9 % (20-44); Mean Corpuscular HGB Conc 33 gm/dL (32-36); Mean Corpuscular Hemoglobin 31 pg (26-34); Mean Corpuscular Volume 93 fL (80-100); Monocytes Percent Auto 7.8 % (0.0-11.0); Platelet Count* 149 K/uL (140-440); RDW Coefficient of Variation % 18.1 % (11.5-15.5); Red Blood Count 4.03 m/uL (4.30-5.90); White Blood Count* 11.47 K/uL (4.50-11.00)
[2022-03-29 14:51] LABS: Albumin* 3.8 g/dL (3.3-5.0); Chloride* 98 mmol/L (96-114); Potassium* 4.1 mmol/L (3.6-5.1); Sodium* 132 mmol/L (135-149)
[2022-03-29 14:53] LABS: Creatinine* 0.5 mg/dL (0.5-1.5); Estimated Glomerular Filt Rate 112 ml/min
[2022-03-29 14:54] LABS: Alanine Aminotransferase* 46 U/L (4-50); Alkaline Phosphatase* 338 U/L (40-150); Aspartate Amino Transferase* 43 U/L (12-35); Bilirubin Total* 0.7 mg/dL (0.1-1.5); Blood Urea Nitrogen* 18 mg/dL (7-30); Calcium* 9.1 mg/dL (8.4-10.6); Carbon Dioxide* 28 mmol/L (20-32); Glucose* 91 mg/dL (60-115); Total Protein* 6.2 g/dL (6.0-8.3)
[2022-03-29 15:13] LABS: Slide Review Reflex No
[2022-03-29] MEDS: HEPARIN 500 UNIT/5 ML SYRINGE IVF (17:49)
[2022-03-29] MEDS: SODIUM CHLORIDE 0.9 % (FLUSH) 10 ML SYRINGE IVF (17:49)
[2022-03-30 10:12] VITALS: BP 97/67; PULSE 74; RESP 16; TEMP 36.2; O2SAT 100
[2022-03-30] MEDS: dexAMETHasone 10 MG in 0.9 % SODIUM CHLORIDE 100 ml 100 ML 404 MG IVPB (10:45)
[2022-03-30] MEDS: GRANISETRON 1 MG/ML inj IVP (10:45)
[2022-03-30] MEDS: SODIUM CHLORIDE 0.9 % (FLUSH) 10 ML SYRINGE IVF (10:46)
[2022-03-30] MEDS: 0.9 % SODIUM CHLORIDE 250 ml IV (10:46)
[2022-03-31 13:30] VITALS: BP 101/62; PULSE 72; RESP 16; TEMP 36.8; O2SAT 99
[2022-03-31] MEDS: PEGFILGRASTIM 6 MG/0.6 ML SYRINGE SUBCUT (13:47)
--- NOTE | 2022-03-31 14:55 | PC.NURSE ---
Pt present at [facility] for Neulasta injection. Pt reported ongoing suture protrusion with surrounding redness. Called Jenny Storey real estate utilization officer nurse who came to pt's bedside in [facility] to evaluate and snip the spit stitch. Pt very appreciative of resolution of this issue.
[2022-04-12 14:00] LABS: Basophils Percent Auto 0.2 % (0.0-3.0); Eosinophils Percent Auto 0.6 % (0.0-7.0); Hematocrit 36.6 % (37.0-53.0); Immature Granulocytes Abs Auto 0.09 K/uL (0.00-0.30); Lymphocytes Percent Auto 9.7 % (20-44); Mean Corpuscular HGB Conc 33 gm/dL (32-36); Mean Corpuscular Hemoglobin 31 pg (26-34); Mean Corpuscular Volume 95 fL (80-100); Monocytes Percent Auto 7.2 % (0.0-11.0); Neutrophils Percent Auto 81.7 % (42.0-72.0); Platelet Count* 142 K/uL (140-440); RDW Coefficient of Variation % 18.2 % (11.5-15.5); Red Blood Count 3.84 m/uL (4.30-5.90); White Blood Count* 14.79 K/uL (4.50-11.00)
[2022-04-12 14:06] LABS: Slide Review Reflex No
[2022-04-12] MEDS: SODIUM CHLORIDE 0.9 % (FLUSH) 10 ML SYRINGE IVF (14:15)
[2022-04-12] MEDS: HEPARIN 500 UNIT/5 ML SYRINGE IVF (14:15)
[2022-04-12 14:18] LABS: Albumin* 3.5 g/dL (3.3-5.0); Chloride* 98 mmol/L (96-114)
[2022-04-12 14:19] LABS: Sodium* 135 mmol/L (135-149)
[2022-04-12 14:21] LABS: Alanine Aminotransferase* 36 U/L (4-50); Alkaline Phosphatase* 289 U/L (40-150); Aspartate Amino Transferase* 36 U/L (12-35); Bilirubin Total* 0.6 mg/dL (0.1-1.5); Blood Urea Nitrogen* 16 mg/dL (7-30); Carbon Dioxide* 31 mmol/L (20-32); Creatinine* 0.5 mg/dL (0.5-1.5); Estimated Glomerular Filt Rate 112 ml/min; Glucose* 125 mg/dL (60-115); Total Protein* 5.8 g/dL (6.0-8.3)
[2022-04-12 14:22] LABS: Calcium* 8.9 mg/dL (8.4-10.6)
[2022-04-13 10:14] VITALS: BP 103/65; PULSE 56; RESP 16; TEMP 36.2; O2SAT 100
[2022-04-13] MEDS: GRANISETRON 1 MG/ML inj IVP (10:47)
[2022-04-13] MEDS: dexAMETHasone 10 MG in 0.9 % SODIUM CHLORIDE 100 ml 100 ML 404 MG IVPB (10:47)
[2022-04-13] MEDS: 0.9 % SODIUM CHLORIDE 250 ml IV (10:48)
[2022-04-13] MEDS: SODIUM CHLORIDE 0.9 % (FLUSH) 10 ML SYRINGE IVF (12:58)
[2022-04-13] MEDS: HEPARIN 500 UNIT/5 ML SYRINGE IVF (12:58)
[2022-04-14 13:40] VITALS: BP 94/63; PULSE 76; RESP 16; TEMP 36.3; O2SAT 98
[2022-04-14] MEDS: PEGFILGRASTIM 6 MG/0.6 ML SYRINGE SUBCUT (13:42)
[2022-04-26 13:55] LABS: Basophils Percent Auto 0.2 % (0.0-3.0); Eosinophils Percent Auto 0.2 % (0.0-7.0); Hematocrit 37.9 % (37.0-53.0); Hemoglobin* 12.3 gm/dL (13.5-17.5); Lymphocytes Percent Auto 10.7 % (20-44); Mean Corpuscular HGB Conc 33 gm/dL (32-36); Mean Corpuscular Hemoglobin 31 pg (26-34); Mean Corpuscular Volume 96 fL (80-100); Neutrophils Percent Auto 80.2 % (42.0-72.0); Platelet Count* 156 K/uL (140-440); RDW Coefficient of Variation % 16.9 % (11.5-15.5); Red Blood Count 3.95 m/uL (4.30-5.90); White Blood Count* 13.61 K/uL (4.50-11.00)
[2022-04-26 14:01] LABS: Slide Review Reflex No
[2022-04-26 14:10] LABS: Albumin* 3.7 g/dL (3.3-5.0); Chloride* 96 mmol/L (96-114)
[2022-04-26 14:11] LABS: Potassium* 4.2 mmol/L (3.6-5.1); Sodium* 133 mmol/L (135-149)
[2022-04-26 14:13] LABS: Aspartate Amino Transferase* 35 U/L (12-35); Bilirubin Total* 0.6 mg/dL (0.1-1.5); Carbon Dioxide* 30 mmol/L (20-32); Creatinine* 0.6 mg/dL (0.5-1.5); Estimated Glomerular Filt Rate 106 ml/min
[2022-04-26 14:14] LABS: Alanine Aminotransferase* 41 U/L (4-50); Alkaline Phosphatase* 326 U/L (40-150); Blood Urea Nitrogen* 15 mg/dL (7-30); Calcium* 8.7 mg/dL (8.4-10.6); Glucose* 149 mg/dL (60-115)
[2022-04-27] MEDS: dexAMETHasone 10 MG in 0.9 % SODIUM CHLORIDE 100 ml 100 ML 404 MG IVPB (10:40)
[2022-04-27] MEDS: GRANISETRON 1 MG/ML inj IVP (10:41)
[2022-04-27] MEDS: 0.9 % SODIUM CHLORIDE 250 ml IV ×2 (10:41→15:29)
[2022-04-27] MEDS: SODIUM CHLORIDE 0.9 % (FLUSH) 10 ML SYRINGE IVF (10:41)
[2022-04-27 11:36] VITALS: BP 103/72; PULSE 88; RESP 18; TEMP 36.6; O2SAT 99
[2022-04-27] MEDS: HEPARIN 500 UNIT/5 ML SYRINGE IVF (15:28)
[2022-04-28 03:29] LABS: Cancer Antigen-GI (CA 19-9) 10331 U/mL (<=35)
[2022-04-28 13:48] VITALS: BP 108/69; PULSE 69; RESP 16; TEMP 36.4; O2SAT 100
[2022-04-28] MEDS: PEGFILGRASTIM 6 MG/0.6 ML SYRINGE SUBCUT (14:12)
[2022-05-10 09:53] LABS: Basophils Percent Auto 0.1 % (0.0-3.0); Eosinophils Percent Auto 0.1 % (0.0-7.0); Hematocrit 38.5 % (37.0-53.0); Hemoglobin* 12.6 gm/dL (13.5-17.5); Immature Granulocytes Pct Auto 0.4 %; Lymphocytes Percent Auto 7.9 % (20-44); Mean Corpuscular HGB Conc 33 gm/dL (32-36); Mean Corpuscular Hemoglobin 31 pg (26-34); Mean Corpuscular Volume 95 fL (80-100); Monocytes Percent Auto 6.7 % (0.0-11.0); Neutrophils Percent Auto 84.8 % (42.0-72.0); Platelet Count* 158 K/uL (140-440); RDW Coefficient of Variation % 16.3 % (11.5-15.5); Red Blood Count 4.05 m/uL (4.30-5.90)
[2022-05-10 09:55] LABS: Slide Review Reflex No
[2022-05-10] MEDS: SODIUM CHLORIDE 0.9 % (FLUSH) 10 ML SYRINGE IVF (09:57)
[2022-05-10] MEDS: HEPARIN 500 UNIT/5 ML SYRINGE IVF (09:57)
[2022-05-10 10:51] LABS: Albumin* 3.8 g/dL (3.3-5.0); Chloride* 97 mmol/L (96-114); Sodium* 132 mmol/L (135-149)
[2022-05-10 10:53] LABS: Bilirubin Total* 0.9 mg/dL (0.1-1.5); Creatinine* 0.6 mg/dL (0.5-1.5); Estimated Glomerular Filt Rate 106 ml/min
[2022-05-10 10:54] LABS: Alanine Aminotransferase* 46 U/L (4-50); Alkaline Phosphatase* 486 U/L (40-150); Aspartate Amino Transferase* 43 U/L (12-35); Blood Urea Nitrogen* 17 mg/dL (7-30); Calcium* 9.1 mg/dL (8.4-10.6); Carbon Dioxide* 30 mmol/L (20-32); Glucose* 97 mg/dL (60-115); Total Protein* 6.4 g/dL (6.0-8.3)
--- NOTE | 2022-05-11 10:51 | URNOTE ---
Request received for authorization for Fluorouriacil (J9190), Leucovorin ([id number]), Oxaliplatin (J9263). Prior authorization is not required as services are based on medical necessity and follow Medicare guidelines.
[2022-05-12 10:49] VITALS: BP 106/69; PULSE 87; RESP 16; TEMP 36.7; O2SAT 99
--- NOTE | 2022-05-12 11:52 | ONC.NURNOTE ---
New chemo start: teaching completed for Oxaliplatin/leucovorin/5FU -reviewed possible side effects -Ben with many questions about cold sensitivity and neuropathy -Reviewed treatment process including pump consent signed
[2022-05-12] MEDS: GRANISETRON 1 MG/ML inj IVP (11:57)
[2022-05-12] MEDS: dexAMETHasone 20 MG in 0.9 % SODIUM CHLORIDE 100 ml 100 ML 408 MG IVPB (11:57)
[2022-05-12] MEDS: SODIUM CHLORIDE 0.9 % (FLUSH) 10 ML SYRINGE IVF (11:58)
[2022-05-12] MEDS: 0.9 % SODIUM CHLORIDE 250 ml IV (11:58)
--- NOTE | 2022-05-12 15:08 | ONC.NURNOTE ---
Ben received teaching before first Folfox including pump teaching by myself and Rolando MORRIS
--- NOTE | 2022-05-13 09:35 | ONC.NURNOTE ---
Post chemo follow up: -reports needles sensation in throat with cool drinks -mild nausea reports as stomach ache -has not taken anything for nausea -Ben prefers to evaluate what the baseline experience will be for nausea -reports sleeping well last night, and managed the pump in bed, reports it went as well as it could
[2022-05-14 13:13] VITALS: BP 100/64; PULSE 87; RESP 20; TEMP 36.6; O2SAT 99
[2022-05-14] MEDS: HEPARIN 500 UNIT/5 ML SYRINGE IVF (13:30)
[2022-05-14] MEDS: SODIUM CHLORIDE 0.9 % (FLUSH) 10 ML SYRINGE IVF (13:30)
--- NOTE | 2022-05-24 11:13 | ONC.NURNOTE ---
decrease in size and redness of pinple like on lt side of port. no white area in the middle like last week. pt had been doing hot packs.
[2022-05-24 11:16] LABS: Basophils Absolute Auto 0.01 K/uL (0.00-0.30); Basophils Percent Auto 0.2 % (0.0-3.0); Eosinophils Absolute Auto 0.02 K/uL (0.00-0.50); Eosinophils Percent Auto 0.4 % (0.0-7.0); Hematocrit 35.7 % (37.0-53.0); Hemoglobin* 11.5 gm/dL (13.5-17.5); Immature Granulocytes Abs Auto 0.01 K/uL (0.00-0.30); Immature Granulocytes Pct Auto 0.2 %; Lymphocytes Percent Auto 15.6 % (20-44); Mean Corpuscular HGB Conc 32 gm/dL (32-36); Mean Corpuscular Hemoglobin 31 pg (26-34); Mean Corpuscular Volume 96 fL (80-100); Monocytes Percent Auto 10.5 % (0.0-11.0); Neutrophils Percent Auto 73.1 % (42.0-72.0); Platelet Count* 194 K/uL (140-440); RDW Coefficient of Variation % 14.9 % (11.5-15.5); Red Blood Count 3.71 m/uL (4.30-5.90); White Blood Count* 5.52 K/uL (4.50-11.00)
[2022-05-24 11:18] LABS: Slide Review Reflex No
[2022-05-24 11:41] LABS: Albumin* 3.6 g/dL (3.3-5.0); Chloride* 100 mmol/L (96-114); Potassium* 4.2 mmol/L (3.6-5.1); Sodium* 133 mmol/L (135-149)
[2022-05-24 11:44] LABS: Alanine Aminotransferase* 46 U/L (4-50); Alkaline Phosphatase* 343 U/L (40-150); Aspartate Amino Transferase* 44 U/L (12-35); Bilirubin Total* 0.8 mg/dL (0.1-1.5); Blood Urea Nitrogen* 16 mg/dL (7-30); Carbon Dioxide* 27 mmol/L (20-32); Creatinine* 0.6 mg/dL (0.5-1.5); Estimated Glomerular Filt Rate 106 ml/min; Glucose* 160 mg/dL (60-115); Total Protein* 6.1 g/dL (6.0-8.3)
[2022-05-24 11:45] LABS: Calcium* 8.6 mg/dL (8.4-10.6)
[2022-05-24] MEDS: HEPARIN 500 UNIT/5 ML SYRINGE IVF (11:46)
[2022-05-24] MEDS: SODIUM CHLORIDE 0.9 % (FLUSH) 10 ML SYRINGE IVF (11:46)
[2022-05-26 09:11] VITALS: BP 106/67; PULSE 87; RESP 16; TEMP 35.7; O2SAT 100
[2022-05-26] MEDS: GRANISETRON 1 MG/ML inj IVP (09:45)
[2022-05-26] MEDS: SODIUM CHLORIDE 0.9 % (FLUSH) 10 ML SYRINGE IVF (09:45)
[2022-05-26] MEDS: dexAMETHasone 20 MG in 0.9 % SODIUM CHLORIDE 100 ml 100 ML 408 MG IVPB (09:45)
--- NOTE | 2022-05-26 10:21 | ONC.NURNOTE ---
no reddness at lt side of port. looks like a single hair is growing out of where the ?subacius cyst was. no reddness or drainage.
[2022-05-28 11:20] VITALS: BP 120/73; PULSE 84; RESP 16; TEMP 36.4; O2SAT 95
[2022-05-28] MEDS: HEPARIN 500 UNIT/5 ML SYRINGE IVF (11:23)
[2022-05-28] MEDS: SODIUM CHLORIDE 0.9 % (FLUSH) 10 ML SYRINGE IVF (11:24)
[2022-06-07 09:54] LABS: Basophils Absolute Auto 0.01 K/uL (0.00-0.30); Basophils Percent Auto 0.2 % (0.0-3.0); Hematocrit 40.1 % (37.0-53.0); Hemoglobin* 13.2 gm/dL (13.5-17.5); Lymphocytes Absolute Auto 1.01 K/uL (0.90-2.90); Lymphocytes Percent Auto 20.2 % (20-44); Mean Corpuscular HGB Conc 33 gm/dL (32-36); Mean Corpuscular Hemoglobin 31 pg (26-34); Mean Corpuscular Volume 94 fL (80-100); Monocytes Percent Auto 12.4 % (0.0-11.0); Neutrophils Absolute Auto 3.37 K/uL (1.7-7.0); Neutrophils Percent Auto 67.2 % (42.0-72.0); Platelet Count* 151 K/uL (140-440); RDW Coefficient of Variation % 14.7 % (11.5-15.5); Red Blood Count 4.28 m/uL (4.30-5.90); White Blood Count* 5.01 K/uL (4.50-11.00)
[2022-06-07 10:11] LABS: Albumin* 3.7 g/dL (3.3-5.0); Chloride* 101 mmol/L (96-114); Potassium* 4.3 mmol/L (3.6-5.1); Sodium* 133 mmol/L (135-149)
[2022-06-07 10:12] LABS: Slide Review Reflex No
[2022-06-07 10:13] LABS: Bilirubin Total* 1.3 mg/dL (0.1-1.5); Creatinine* 0.6 mg/dL (0.5-1.5); Estimated Glomerular Filt Rate 106 ml/min
[2022-06-07 10:14] LABS: Alanine Aminotransferase* 56 U/L (4-50); Alkaline Phosphatase* 430 U/L (40-150); Aspartate Amino Transferase* 60 U/L (12-35); Blood Urea Nitrogen* 12 mg/dL (7-30); Calcium* 8.9 mg/dL (8.4-10.6); Carbon Dioxide* 28 mmol/L (20-32); Glucose* 97 mg/dL (60-115); Total Protein* 6.3 g/dL (6.0-8.3)
[2022-06-08 09:12] VITALS: BP 120/81; PULSE 83; RESP 16; TEMP 36.6; O2SAT 100
[2022-06-08] MEDS: GRANISETRON 1 MG/ML inj IVP (11:20)
[2022-06-08] MEDS: dexAMETHasone 20 MG in 0.9 % SODIUM CHLORIDE 100 ml 100 ML 408 MG IVPB (11:21)
[2022-06-08] MEDS: 5 % DEXTROSE 250 ML IV (11:21)
[2022-06-10 12:51] VITALS: BP 125/73; PULSE 84; RESP 16; TEMP 36.6; O2SAT 95
[2022-06-10] MEDS: HEPARIN 500 UNIT/5 ML SYRINGE IVF (12:58)
[2022-06-10] MEDS: SODIUM CHLORIDE 0.9 % (FLUSH) 10 ML SYRINGE IVF (12:59)
[2022-06-22 09:05] VITALS: BP 114/76; PULSE 80; RESP 16; TEMP 36.8; O2SAT 99
[2022-06-22 09:25] LABS: Basophils Percent Auto 0.3 % (0.0-3.0); Eosinophils Percent Auto 0.3 % (0.0-7.0); Hematocrit 36.5 % (37.0-53.0); Lymphocytes Percent Auto 24.5 % (20-44); Mean Corpuscular HGB Conc 33 gm/dL (32-36); Mean Corpuscular Hemoglobin 30 pg (26-34); Mean Corpuscular Volume 92 fL (80-100); Neutrophils Percent Auto 59.9 % (42.0-72.0); Platelet Count* 119 K/uL (140-440); RDW Coefficient of Variation % 14.9 % (11.5-15.5); Red Blood Count 3.97 m/uL (4.30-5.90); White Blood Count* 3.26 K/uL (4.50-11.00)
[2022-06-22 09:26] LABS: Slide Review Reflex No
[2022-06-22 09:37] LABS: Albumin* 3.3 g/dL (3.3-5.0); Chloride* 99 mmol/L (96-114); Potassium* 4.1 mmol/L (3.6-5.1); Sodium* 131 mmol/L (135-149)
[2022-06-22 09:40] LABS: Alanine Aminotransferase* 46 U/L (4-50); Alkaline Phosphatase* 350 U/L (40-150); Aspartate Amino Transferase* 47 U/L (12-35); Bilirubin Total* 0.7 mg/dL (0.1-1.5); Blood Urea Nitrogen* 12 mg/dL (7-30); Carbon Dioxide* 29 mmol/L (20-32); Creatinine* 0.6 mg/dL (0.5-1.5); Estimated Glomerular Filt Rate 106 ml/min; Glucose* 138 mg/dL (60-115); Total Protein* 5.7 g/dL (6.0-8.3)
[2022-06-22 09:41] LABS: Calcium* 8.5 mg/dL (8.4-10.6)
[2022-06-22] MEDS: 5 % DEXTROSE 250 ML IV (10:46)
[2022-06-22] MEDS: GRANISETRON 1 MG/ML inj IVP (10:46)
[2022-06-22] MEDS: dexAMETHasone 20 MG in 0.9 % SODIUM CHLORIDE 100 ml 100 ML 408 MG IVPB (10:46)
[2022-06-24] MEDS: HEPARIN 500 UNIT/5 ML SYRINGE IVF (11:34)
[2022-06-24] MEDS: SODIUM CHLORIDE 0.9 % (FLUSH) 10 ML SYRINGE IVF (11:34)
[2022-07-06 09:19] VITALS: BP 133/86; PULSE 76; RESP 16; TEMP 37.2; O2SAT 98
[2022-07-06 09:42] LABS: Basophils Percent Auto 0.2 % (0.0-3.0); Eosinophils Percent Auto 0.2 % (0.0-7.0); Hematocrit 38.5 % (37.0-53.0); Hemoglobin* 12.9 gm/dL (13.5-17.5); Lymphocytes Percent Auto 13.3 % (20-44); Mean Corpuscular HGB Conc 34 gm/dL (32-36); Mean Corpuscular Hemoglobin 30 pg (26-34); Mean Corpuscular Volume 89 fL (80-100); Neutrophils Percent Auto 78.3 % (42.0-72.0); Platelet Count* 119 K/uL (140-440); RDW Coefficient of Variation % 15.6 % (11.5-15.5); Red Blood Count 4.33 m/uL (4.30-5.90); White Blood Count* 4.14 K/uL (4.50-11.00)
[2022-07-06 09:49] LABS: Slide Review Reflex No
[2022-07-06 09:53] LABS: Chloride* 99 mmol/L (96-114)
[2022-07-06 09:54] LABS: Albumin* 3.2 g/dL (3.3-5.0); Sodium* 129 mmol/L (135-149)
[2022-07-06 09:55] LABS: Potassium* 3.4 mmol/L (3.6-5.1)
[2022-07-06 09:57] LABS: Alanine Aminotransferase* 61 U/L (4-50); Alkaline Phosphatase* 379 U/L (40-150); Aspartate Amino Transferase* 71 U/L (12-35); Bilirubin Total* 1.3 mg/dL (0.1-1.5); Blood Urea Nitrogen* 10 mg/dL (7-30); Carbon Dioxide* 26 mmol/L (20-32); Creatinine* 0.5 mg/dL (0.5-1.5); Estimated Glomerular Filt Rate 112 ml/min; Glucose* 149 mg/dL (60-115); Total Protein* 5.5 g/dL (6.0-8.3)
[2022-07-06 09:58] LABS: Calcium* 8.5 mg/dL (8.4-10.6)
--- NOTE | 2022-07-06 15:31 | PC.NURSE ---
Pt presented to [facility] today for labs and chemo infusion. marketing project specialist of port site is that a lateral suture is protruding from the skin. The medial suture looks as though it is about to break through the skin. Accessed pt's port per policy and leonora blood. Pt saw provider and based on her evaluation and assessment, chemo was held today and fluids with potassium was given. Port was de-accessed. Pt will go to surgery tomorrow morning to have port site assessed. He will then come to [facility] for chemo infusion. Ben is also scheduled for pump removal on Tuesday07/09/2022.
[2022-07-07 11:33] VITALS: BP 112/75; PULSE 80; RESP 16; TEMP 37; O2SAT 100
--- NOTE | 2022-07-07 12:19 | PC.NURSE ---
Received a call from Dr. Low today regarding Ben's port. MD saw and assessed the port site today and noted the protruding sutures. MD snipped a very small portion of the spit stitch and stated that if any more were removed, it would require a larger incision. Both Ben and Dr. Low chose to leave it for now and monitor. It doesn't bother the patient and the surgeon is ok with leaving it. Pt will apply topical ointment. This messaging was relayed to Krysten Murguia APRN. Also see Dr. Low's documentation.
[2022-07-07 12:26] LABS: Chloride* 99 mmol/L (96-114); Potassium* 3.4 mmol/L (3.6-5.1); Sodium* 129 mmol/L (135-149)
[2022-07-07 12:29] LABS: Carbon Dioxide* 28 mmol/L (20-32)
[2022-07-07] MEDS: SODIUM CHLORIDE 0.9 % (FLUSH) 10 ML SYRINGE IVF (12:29)
[2022-07-07] MEDS: GRANISETRON 1 MG/ML inj IVP (12:29)
[2022-07-07] MEDS: dexAMETHasone 20 MG in 0.9 % SODIUM CHLORIDE 100 ml 100 ML 408 MG IVPB (12:29)
[2022-07-07] MEDS: 5 % DEXTROSE 250 ML IV (12:29)
[2022-07-09 14:00] VITALS: BP 118/73; PULSE 54; RESP 16; TEMP 36.1; O2SAT 94
--- NOTE | 2022-07-09 14:44 | ONC.NURNOTE ---
2 red pumps and red streak on forhead. one slight open scabbed forming area. the size of a pencil eraser. no fever. pt denies hitting his head or falling. Neuros intact. per Krysten GATES use triple antibiotic and be seen in the ER if worsens. Pt states he feels fine. steady when up.
[2022-07-09] MEDS: 0.9 % SODIUM CHLORIDE 250 ml IV (15:05)
[2022-07-09] MEDS: HEPARIN 500 UNIT/5 ML SYRINGE IVF (15:05)
[2022-07-19 10:29] LABS: Basophils Percent Auto 0.2 % (0.0-3.0); Hematocrit 37.6 % (37.0-53.0); Hemoglobin* 12.8 gm/dL (13.5-17.5); Immature Granulocytes Pct Auto 0.2 %; Lymphocytes Percent Auto 11.8 % (20-44); Mean Corpuscular HGB Conc 34 gm/dL (32-36); Mean Corpuscular Hemoglobin 29 pg (26-34); Mean Corpuscular Volume 86 fL (80-100); Monocytes Percent Auto 6.6 % (0.0-11.0); Neutrophils Percent Auto 81.2 % (42.0-72.0); Platelet Count* 77 K/uL (140-440); RDW Coefficient of Variation % 15.7 % (11.5-15.5); Red Blood Count 4.39 m/uL (4.30-5.90); White Blood Count* 4.22 K/uL (4.50-11.00)
[2022-07-19 10:33] LABS: Slide Review Reflex No
[2022-07-19 10:37] LABS: Chloride* 98 mmol/L (96-114)
[2022-07-19 10:38] LABS: Albumin* 2.7 g/dL (3.3-5.0); Potassium* 3.8 mmol/L (3.6-5.1); Sodium* 127 mmol/L (135-149)
[2022-07-19 10:40] LABS: Bilirubin Total* 1.4 mg/dL (0.1-1.5); Carbon Dioxide* 26 mmol/L (20-32); Creatinine* 0.5 mg/dL (0.5-1.5); Estimated Glomerular Filt Rate 112 ml/min
[2022-07-19 10:41] LABS: Alanine Aminotransferase* 82 U/L (4-50); Alkaline Phosphatase* 418 U/L (40-150); Aspartate Amino Transferase* 83 U/L (12-35); Blood Urea Nitrogen* 26 mg/dL (7-30); Calcium* 7.8 mg/dL (8.4-10.6); Glucose* 126 mg/dL (60-115)
[2022-07-20 10:00] VITALS: BP 123/89; PULSE 94; RESP 20; TEMP 36.8; O2SAT 100
[2022-07-20] MEDS: SODIUM CHLORIDE 0.9 % (FLUSH) 10 ML SYRINGE IVF (10:35)
[2022-07-20] MEDS: dexAMETHasone 20 MG in 0.9 % SODIUM CHLORIDE 100 ml 100 ML 408 MG IVPB (10:35)
[2022-07-20] MEDS: GRANISETRON 1 MG/ML inj IVP (10:35)
[2022-07-20] MEDS: 5 % DEXTROSE 250 ML IV (10:35)
--- NOTE | 2022-07-20 13:54 | ONC.NURNOTE ---
Referral faxed to [facility] for evaluation for home durable medical equipment for safety and support in home- per Ben monge
--- NOTE | 2022-07-21 16:58 | REH.OT ---
OT: Received order for home safety eval for DME and contacted patient's spouse this afternoon, Cynthia Gurrola. Cynthia reports patient fell and hit head and she called 911 just prior to our call. Will call to recheck patient status later this week.
--- NOTE | 2022-07-22 07:43 | ONC.NURNOTE ---
Patients spouse stopped in office to drop off patient 5FU pump. She notes that patient was brought to the ER following weakness and a fall, hospital needed port for IV access so pump removed.
--- NOTE | 2022-07-23 17:29 | REH.OT ---
OT: Informed during hospitalization that patient was seen by IP OT and is transitioning to hospice. Home DME needs will be addressed through hospice. Outpatient OT home safety eval will no longer be needed.
== END 2022-07-25 23:59 | disposition home or self-care (01) ==
LOC: CCIC 10:00
PROVIDERS: Clinical Nurse Specialist; Internal Medicine Medical Oncology; PCP Family Medicine; Referring Provider Family Medicine; Visit Provider Physician Assistant
DX: C25.9 Malignant neoplasm of pancreas, unspecified (principal); C78.7 Secondary malignant neoplasm of liver and intrahepatic bile duct
CPT/HCPCS: 36415; 36591; 80051; 80053; 80076; 85025; 86301; 96360; 96365; 96368; 96372; 96376; 96413; 96415; 96416; 96417; 99211; 99212; 99213; 99214; 99215; J2506; J0640; J1100; J1626; J1642; J2250; J2405; J2704; J3010; J3480; J7050; J7120; J9190; J9201; J9263; J9264